=== PATIENT | female | born 1960 | race Caucasian/White ===

== ENCOUNTER → 2016-06-20 | Outpatient (CLI) | payer BC ==
[~2016-06-20] MED LIST: ACET-1256 PO; CALC600T9 PO; CHOL100010 PO; FLNIN/ NAE; HYDR12.56 PO; HYDUNK PO; MISCCAP80 PO; MULT-506 PO; OMEP20CA9 PO
--- NOTE | 2016-06-20 16:47 | MAMMOGRAPHY REPORT ---
BILATERAL DIGITAL SCREENING MAMMOGRAM TOMOSYNTHESIS WITH CAD: 06/20/2016 CLINICAL HISTORY: Routine screening. Patient has no complaints. TECHNIQUE: Breast tomosynthesis in addition to standard 2D mammography was performed. Current study was also evaluated with a Computer Aided Detection (CAD) system. COMPARISON: Comparison is made to exams dated: 06/19/2015 mammogram, 06/14/2013 mammogram, 06/07/2012 mammogram, 06/06/2011 mammogram, 06/15/2010 ultrasound, and 06/03/2009 mammogram - [facility]. BREAST COMPOSITION: There are scattered areas of fibroglandular density in both breasts. FINDINGS: The parenchymal pattern is similar to prior mammograms. No new suspicious mass, java web architect ural distortion or cluster of microcalcifications is seen. IMPRESSION: ACR BI-RADS CATEGORY 2: BENIGN There is no mammographic evidence of malignancy. A 1 year screening mammogram is recommended. The p atient will receive written notification of the results. Approximately 10% of breast cancers are not detected with mammography. A negative mammographic repor t should not delay biopsy if a clinically suggestive mass is present. Kaila Machado M.D. ay/:06/20/2016 16:30:16 [employer] Agent: Patricia WHITAKER(Xu)(M), [facility] letter sent: Normal 1/2 BI-RADS Code: ACR BI-RADS Category 2: Benign
== END | disposition home or self-care (01) ==
LOC: C.MAMM 11:33
PROVIDERS: ATTEND Obstetrics & Gynecology
DX: Z12.31 Encounter for screening mammogram for malignant neoplasm of breast (principal)

== ENCOUNTER → 2016-10-12 | Outpatient (CLI) | payer BC ==
[~2016-10-12] MED LIST changes: +CPR500 PO; +MTR500 PO; +PRT/20 PO
[2016-10-15 03:34] LABS: CHLAMYDIA TRACH RNA*** NOT DETECTED (NOT DETECTED); GC (NEIS GONORRHOEAE)RNA** NOT DETECTED (NOT DETECTED)
== END | disposition home or self-care (01) ==
LOC: C.LABSPEC 17:50
PROVIDERS: ATTEND Obstetrics & Gynecology
DX: N76.0 Acute vaginitis (principal)

== ENCOUNTER 2017-01-02 22:07 | Emergency (ER) | payer BC ==
[~2017-01-02] VITALS: Ht 157.5 cm; Wt 72.5 kg
[~2017-01-02 22:07] MED LIST changes: -ACET-1256 PO; -CPR500 PO; -FLNIN/ NAE; -HYDR12.56 PO; -MTR500 PO; -OMEP20CA9 PO; -PRT/20 PO
[2017-01-02 22:09] VITALS: TEMP 36.7; Ht 157.5 cm; Wt 72.5 kg
[2017-01-02] MEDS ORDERED: FLNIN/ NAE (22:33)
[2017-01-02] MEDS ORDERED: ACET-1256 PO (22:33)
[2017-01-02] MEDS ORDERED: OMEP20CA9 PO (22:33)
[2017-01-02] MEDS ORDERED: HYDR12.56 PO (22:33)
--- NOTE | 2017-01-02 23:00 | DIAGNOSTIC IMAGING REPORT ---
LEFT VENOUS DOPP LOWER EXT UNILAT CLINICAL HISTORY: Left anterior thigh pain. No trauma. Surgery 4 weeks ago. Pain. Edema. TECHNIQUE: Venous Doppler COMPARISON STUDY: None FINDINGS: Normal study IMPRESSION: Normal study The above report was generated using voice recognition software. It may contain grammatical, syntax or spelling errors. Electronically signed by: Tao Sterling M.D. 01/02/2017 10:59 PM Dictated Date/Time: 01/02/2017 10:58 PM
--- NOTE | 2017-01-02 23:13 | EMERGENCY ROOM VISIT NOTE ---
History First contact with patient: 22:12 Chief Complaint: LEG PAIN,LEG INJURY Stated Complaint: PAIN A L THIGH, BLOOD CLOT History of Present Illness The patient is a 56 year old female who presents to the Emergency Room via private vehicle with complaints of "pain in the left thigh, blood clot". The patient states that she had a partial hysterectomy 4 weeks see her, and now has left groin pain that radiates to the left anterior thigh. She rates the pain as a 4-5/10. It is achy in nature. It began this evening around 7:30 or 8 PM. There is been no trauma or injury. She is concerned that may be a blood clot secondary to her surgery 4 weeks ago. She denies any abdominal pain. There has been no urinary symptoms or vaginal discharge. Review of Systems A complete 6-point Review of Systems was discussed with the patient, with pertinent positives and negatives listed in the History of Present Illness. All remaining Review of Systems questions can be considered negative unless otherwise specified. Past Medical/Surgical History Hysterectomy Family History No pertinent. Social History Smoking Status: Never Smoker Marital Status: Patient was locally with family. Current/Historical Medications Scheduled Acetaminophen (Tylenol), 500 MG PO PRN Calcium Carbonate-Vitamin D (Calcium + D), 1 TAB PO HS Fluticasone Propionate (Fluticasone Propionate), 1 SPRAY HUMBERTO DAILY Hydrochlorothiazide (Hctz), 12.5 MG PO DAILY Omeprazole (Prilosec), 20 MG PO DAILY Physical Exam Vital Signs Date Time Temp Pulse Resp B/P (MAP) Pulse Ox O2 Delivery O2 Flow Rate FiO2 01/02/17 23:20 72 20 141/85 95 Room Air 01/02/17 22:09 36.7 80 16 130/75 97 Room Air Physical Exam VITAL SIGNS - Vital signs and nursing notes were reviewed. Afebrile, normotensive, non-tachycardic and is saturating well on room air 97%. GENERAL -56-year-old female appearing her stated age who is in no acute distress. Communicates well with provider and answers questions appropriately. SKIN - Without rashes. Skin overlying the left leg is unremarkable. LUNGS - Chest wall symmetric without accessory muscle use, intercostals retractions, or central cyanosis. Normal vesicular breath sounds CTA B/L. No wheezes, rales, or rhonchi appreciated. CARDIAC - RRR with S1/S2. No murmur, rubs, or gallops appreciated. EXTREMITIES - No clubbing or peripheral cyanosis. No pretibial edema present. No reproducible tenderness of the left anterior thigh. Neurovascularly intact in this region. +5/5 strength noted in UE/LE bilaterally. Medical Decision & Procedures ER Provider Diagnostic Interpretation: LEFT VENOUS DOPP LOWER EXT UNILAT CLINICAL HISTORY: Left anterior thigh pain. No trauma. Surgery 4 weeks ago. Pain. Edema. TECHNIQUE: Venous Doppler COMPARISON STUDY: None FINDINGS: Normal study IMPRESSION: Normal study The above report was generated using voice recognition software. It may contain grammatical, syntax or spelling errors. Electronically signed by: Tao Sterling M.D. 01/02/2017 10:59 PM Dictated Date/Time: 01/02/2017 10:58 PM Medical Decision Patient was seen and evaluated as above. After obtaining a thorough history and physical examination ultrasound was obtained of the left lower extremity This is to rule out DVT. Results as above. Negative study. Patient was offered further workup, and respectfully declined. I do not believe any other workup is necessary, as there has been no trauma, no fevers or chills and there is no abdominal pain. I suspect this is likely either a pulled muscle, or radiation secondary to nerve pain. She is to follow-up with her family doctor, and is to return with worsening. She was educated upon worrisome symptoms which to return, had questions about discharge, and was discharged home in good condition. In evaluation treatment this patient following differential diagnoses were entertained: DVT, PE, muscle strain, neurologic pain, among others. Impression Primary Impression: Leg pain, left Departure Information Dispostion Home / Self-Care Condition GOOD Referrals Sarah Ferraro D.O. (PCP) Patient Instructions My [facility] Additional Instructions You were seen in the emergency Department for left thigh pain. Fortunately, the DVT study does not reveal any blood clot. At this time I do recommend following up with the family doctor. Please return to the emergency department with any new/concerning symptoms. Thank you, and have a good night.
[2017-01-02 23:20] VITALS: BP 141/85; PULSE 72; O2SAT 95
[2017-03-04] MEDS ORDERED: MTR500 PO (17:12)
[2017-03-04] MEDS ORDERED: CPR500 PO (17:12)
== END 2017-01-02 23:27 | disposition home or self-care (01) ==
LOC: C.EDB 22:07 → C.EDC 23:27
DX: M79.652 Pain in left thigh (principal); Z90.710 Acquired absence of both cervix and uterus

== ENCOUNTER 2017-03-02 07:02 | Inpatient (IN) | payer BC ==
[~2017-03-02] VITALS: Ht 157.5 cm; Wt 71.5 kg
[~2017-03-02 07:02] MED LIST changes: +ACET-1256 PO; -CHOL100010 PO; +FLNIN/ NAE; +HYDR12.56 PO; -HYDUNK PO; -MISCCAP80 PO; -MULT-506 PO; +OMEP20CA9 PO
[2017-03-02] MEDS ORDERED: ONDANSETRON INJ 2 MG/ML 2 ML VIAL IV STA (07:44)
[2017-03-02] MEDS ORDERED: SODIUM CHLORIDE 0.9% 1000ML 1,000 ML IV STA (07:44)
[2017-03-02] MEDS ORDERED: OPTIRAY 320 IV PRN (08:00)
[2017-03-02 08:09] LABS: URINE APPEARANCE CLEAR (CLEAR); URINE BILIRUBIN NEG (NEG); URINE COLOR DK YELLOW; URINE EPITHELIAL CELL AUTO >30 /lpf (0-5); URINE NITRITE NEG (NEG); URINE SPECIFIC GRAVITY 1.021 (1.000-1.030); UROBILINOGEN NEG (NEG)
[2017-03-02 08:10] LABS: MANUAL MICROSCOPIC REQUIRED? NO; REVIEW REQ? NO
[2017-03-02 08:39] LABS: BASO % 0.3 %; BASO ABS # 0.03 K/uL (0-0.2); COMPLETE YES; EOS % 0.5 %; HEMATOCRIT 41.3 % (37-47); IG% 0.2 %; LYMPH % 7.4 %; LYMPH ABS # 0.82 K/uL (1.2-3.4); MEAN CELL VOLUME 87.3 fL (80-100); MEAN CORPUSCULAR HEMOGLOBIN 29.6 pg (25-34); MEAN CORPUSCULAR HGB CONC 33.9 g/dl (32-36); MEAN PLATELET VOLUME 10.9 fL (7.4-10.4); MONO % 7.8 %; NEUT % 83.8 %; PLATELET COUNT 238 K/uL (130-400); RED BLOOD COUNT 4.73 M/uL (4.2-5.4); WHITE BLOOD COUNT 11.15 K/uL (4.8-10.8)
[2017-03-02 09:08] LABS: ALKALINE PHOSPHATASE 277 U/L (45-117); ALT/SGPT 164 U/L (12-78); BLOOD UREA NITROGEN 14 mg/dl (7-18); BUN/CREATININE RATIO 18.5 (10-20); CALCIUM 9.5 mg/dl (8.5-10.1); CARBON DIOXIDE 29 mmol/L (21-32); CHLORIDE 105 mmol/L (98-107); CREATININE 0.78 mg/dl (0.60-1.20); GLUCOSE 80 mg/dl (70-99); SODIUM 140 mmol/L (136-145)
[2017-03-02 10:03] LABS: POTASSIUM 3.8 mmol/L (3.5-5.1)
--- NOTE | 2017-03-02 10:56 | DIAGNOSTIC IMAGING REPORT ---
CT OF THE ABDOMEN AND PELVIS WITH CONTRAST CLINICAL HISTORY: Abdominal pain and constipation. COMPARISON STUDY: CT of the abdomen and pelvis March 14, 2014. TECHNIQUE: Following IV administration of 94 mL of Optiray-320, axial images of the abdomen and pelvis were obtained from the lung bases to the proximal femurs. Images were reviewed in the axial, sagittal, and coronal planes. IV contrast was administered without complication. A dose lowering technique was utilized adhering to the principles of ALARA. Oral contrast was administered. CT DOSE: 404.72 mGy.cm FINDINGS: Visualized portions of the lower chest demonstrate mildly enlarged bilateral hilar and subcarinal lymph nodes. These nodes measure up to 1.2 cm in short axis. Bilateral lower lobe opacities favor atelectasis. The liver, spleen, adrenal glands, right kidney and pancreas are unremarkable. Note is made of a 2 cm cyst arising from the lower pole of the left kidney. Pancreas divisum deformity is noted. There is no evidence for a bowel obstruction. The appendix is not visualized. There is left colon diverticulosis. Moderate circumferential wall thickening of the mid to distal sigmoid colon is noted with moderate pericolonic infiltration which extends into the sigmoid mesocolon. A small amount of ascites is noted. A 1.2 cm gas and fluid containing abnormality along the superior aspect of the distal sigmoid colon with peripheral enhancement suggests a small diverticular abscess. The findings represent acute diverticulitis. A hypodensity within the right groin is unchanged since CT of August 15, 2012. There are no suspicious osseous lesions. IMPRESSION: 1. Acute sigmoid diverticulitis with moderate inflammation and a 1.2 cm suspected small peridiverticular abscess. Small amount of ascites. 2. Mild bilateral hilar and subcarinal lymphadenopathy which is partially imaged on this exam. This finding is nonspecific and a follow-up nonemergent chest CT could be obtained. 3. Bibasilar opacities, greater on the right, which favor atelectasis. Electronically signed by: Brandt Solo M.D. 03/02/2017 10:55 AM Dictated Date/Time: 03/02/2017 10:42 AM
[2017-03-02] MEDS ORDERED: METRONIDAZOLE 500MG / 100ML NSS IV STA (11:15)
[2017-03-02] MEDS ORDERED: CIPROFLOXACIN 400MG / 200ML D5W IV STA (11:15)
[2017-03-02 11:20] VITALS: O2SAT 96; Ht 157.5 cm; Wt 71.5 kg
--- NOTE | 2017-03-02 11:25 | History and Physical ---
History & Physical Date & Time of Service: Mar 02, 2017 at 11:25 . Chief Complaint: abdominal pain . Primary Care Physician: Sarah Ferraro D.O. . History of Present Illness Source: patient, clinic records, hospital records 56 YO female followed by Dr. Sarah Ferraro for Family Medicine. History of hypertension and other problems noted below. History of diverticulosis with about 3 episodes of diverticulitis over the years. Diverticulitis treated medically; never required surgical intervention. Feeling bloated over the past several days and bowels seemed to be sluggish. Last night developed abdominal pain. Pain located in the lower abdomen, crampy in nature, moderately severe, and did not radiate. Pain worse when moving her bowels, improved after bowel movement. Tried Tylenol with minimal benefit. No associated nausea or vomiting. No diarrhea, melena, hematochezia. Febrile with temp of 101.5. . Past Medical/Surgical History Chronic and Resolved Medical Problems: (1) Diverticular disease of colon Status: Chronic (2) History of diverticulitis Status: Chronic (3) History of urinary calculi Status: Chronic (4) Hypertension Status: Chronic Surgical Problems: (1) Status post appendectomy Permanent Comment: 2002- appendicitis with perforation; required partial bowel resection Status: Chronic (2) Status post hernia repair Permanent Comment: November [place] [facility] [place]: Chronic (3) Status post hysterectomy Permanent Comment: [facility] [place] Status: Chronic (4) Status post rectocele repair Status: Chronic . Family History FATHER Diabetes mellitus MOTHER Lung cancer Social History Smoking Status: Never Smoker Alcohol Use: occasionally Marital Status: Housing status: lives with family Multi-Drug Resistant Organisms History of MDRO: No Allergies Coded Allergies: Clarithromycin (Verified Allergy, Severe, HIVES, 03/02/17) Moxifloxacin (Verified Allergy, Severe, HIVES, PT STATES SHE CAN TAKE CIPRO, 03/02/17) Penicillins (Verified Allergy, Unknown, HIVES, 03/02/17) Sulfa Drugs (Verified Allergy, Unknown, HIVES, 03/02/17) Morphine (Verified Adverse Reaction, Severe, NAUSEA/VOMITING, 03/02/17) Codeine (Verified Adverse Reaction, Unknown, SEVERE N&V, 03/02/17) Naproxen (Verified Adverse Reaction, Unknown, SEVERE N&V, 03/02/17) Home Medications Scheduled Acetaminophen (Tylenol), 500 MG PO PRN Calcium Carbonate-Vitamin D (Calcium + D), 1 TAB PO HS Hydrochlorothiazide (Hctz), 12.5 MG PO DAILY Scheduled PRN Fluticasone Propionate (Fluticasone Propionate), 1 SPRAY HUMBERTO DAILY PRN for CONGESTION Pantoprazole (Protonix), 20 MG PO DAILY PRN for Indigestion Review of Systems Constitutional: + fever, No weight loss Eyes: No worsening of vision, No diplopia ENT: No hearing loss, No sore throat Respiratory: No cough, No shortness of breath Cardiovascular: No chest pain, No edema Abdomen: + problem reported (as noted above in HPI) Musculoskeletal: + joint pain (neck pain) Genitourinary - Female: No dysuria, No hematuria Neurologic: + problem reported (occasional headache) Endocrine: No excessive thirst, No excessive urination Hematologic / Lymphatic: No abnormal bleeding/bruising Integumentary: No rash, No new/changing skin lesions Allergic / Immunologic: + environmental allergies Physical Exam Vital Signs Date Time Temp Pulse Resp B/P (MAP) Pulse Ox O2 Delivery O2 Flow Rate FiO2 03/02/17 10:52 96 20 154/94 96 Room Air 03/02/17 09:14 97 16 145/80 92 Room Air 03/02/17 08:51 93 03/02/17 07:05 37.9 74 20 132/76 99 Room Air General Appearance: WD/WN, no apparent distress Head: normocephalic, atraumatic Eyes: normal inspection, PERRL, EOMI, sclerae normal ENT: hearing grossly normal, pharynx normal Neck: supple, no adenopathy, thyroid normal, no JVD, trachea midline Respiratory/Chest: lungs clear, no respiratory distress, no accessory muscle use Cardiovascular: regular rate, rhythm, no edema, no gallop, no JVD, normal peripheral pulses, + systolic murmur (I/ systolic murmur at base) Abdomen/GI: + pertinent finding (quiet bowel sounds, slightly distended, soft, lower abdominal tenderness with guarding, no palpable masses or organomegaly) Extremities/Musculoskelatal: normal inspection, no calf tenderness, no pedal edema Neurologic/Psych: genetic technologist II-XII nml as tested (PERRL, EOMI, no facial palsy, no dysarthria), no motor/sensory deficits (grossly intact), alert, normal mood/ affect, normal reflexes, oriented x 3 Skin: normal color, warm/dry, no rash Lymphatic: no adenopathy (cervical) Diagnostics Laboratory Results Results Past 24 Hours Test 03/02/17 07:45 03/02/17 08:15 03/02/17 09:43 Range/Units Urine Color DK YELLOW Urine Appearance CLEAR CLEAR Urine pH 6.0 4.5-7.5 Urine Specific [place] 1.021 1.000-1.030 Urine Protein TRACE NEG Urine Glucose (UA) NEG NEG Urine Ketones NEG NEG Urine Occult Blood 2+ NEG Urine Nitrite NEG NEG Urine Bilirubin NEG NEG Urine Urobilinogen NEG NEG Urine Leukocyte Esterase MODERATE NEG Urine WBC (Auto) 10-30 0-5 /hpf Urine RBC (Auto) 10-30 0-4 /hpf Urine Hyaline Casts (Auto) 1-5 0-5 /lpf Urine Epithelial Cells (Auto) >30 0-5 /lpf Urine Bacteria (Auto) NEG NEG White Blood Count 11.15 4.8-10.8 K/uL Red Blood Count 4.73 4.2-5.4 M/uL Hemoglobin 14.0 12.0-16.0 g/dL Hematocrit 41.3 37-47 % Mean Corpuscular Volume 87.3 80-100 fL Mean Corpuscular Hemoglobin 29.6 25-34 pg Mean Corpuscular Hemoglobin Concent 33.9 32-36 g/dl Platelet Count 238 130-400 K/uL Mean Platelet Volume 10.9 7.4-10.4 fL Neutrophils (%) (Auto) 83.8 % Lymphocytes (%) (Auto) 7.4 % Monocytes (%) (Auto) 7.8 % Eosinophils (%) (Auto) 0.5 % Basophils (%) (Auto) 0.3 % Neutrophils # (Auto) 9.35 1.4-6.5 K/uL Lymphocytes # (Auto) 0.82 1.2-3.4 K/uL Monocytes # (Auto) 0.87 0.11-0.59 K/uL Eosinophils # (Auto) 0.06 0-0.5 K/uL Basophils # (Auto) 0.03 0-0.2 K/uL RDW Standard Deviation 41.5 36.4-46.3 fL RDW Coefficient of Variation 12.9 11.5-14.5 % Immature Granulocyte % (Auto) 0.2 % Immature Granulocyte # (Auto) 0.02 0.00-0.02 K/uL Sodium Level 140 136-145 mmol/L Potassium Level 3.8 3.5-5.1 mmol/L Chloride Level 105 98-107 mmol/L Carbon Dioxide Level 29 21-32 mmol/L Anion Gap 6.0 3-11 mmol/L Blood Urea Nitrogen 14 7-18 mg/dl Creatinine 0.78 0.60-1.20 mg/dl Est Creatinine Clear Calc Drug Dose 75.5 ml/min Estimated GFR () 99.2 Estimated GFR (Non- 85.6 BUN/Creatinine Ratio 18.5 10-20 Random Glucose 80 70-99 mg/dl Calcium Level 9.5 8.5-10.1 mg/dl Total Bilirubin 0.8 0.2-1 mg/dl Direct Bilirubin 0.3 0-0.2 mg/dl Aspartate Amino Transf (AST/SGOT) 145 15-37 U/L Alanine Aminotransferase (ALT/SGPT) 164 12-78 U/L Alkaline Phosphatase 277 45-117 U/L Total Protein 7.7 6.4-8.2 gm/dl Albumin 3.6 3.4-5.0 gm/dl Lipase 110 73-393 U/L Diagnostic Radiology CT OF THE ABDOMEN AND PELVIS WITH CONTRAST FINDINGS: Visualized portions of the lower chest demonstrate mildly enlarged bilateral hilar and subcarinal lymph nodes. These nodes measure up to 1.2 cm in short axis. Bilateral lower lobe opacities favor atelectasis. The liver, spleen, adrenal glands, right kidney and pancreas are unremarkable. Note is made of a 2 cm cyst arising from the lower pole of the left kidney. Pancreas divisum deformity is noted. There is no evidence for a bowel obstruction. The appendix is not visualized. There is left colon diverticulosis. Moderate circumferential wall thickening of the mid to distal sigmoid colon is noted with moderate pericolonic infiltration which extends into the sigmoid mesocolon. A small amount of ascites is noted. A 1.2 cm gas and fluid containing abnormality along the superior aspect of the distal sigmoid colon with peripheral enhancement suggests a small diverticular abscess. The findings represent acute diverticulitis. A hypodensity within the right groin is unchanged since CT of August 15, 2012. There are no suspicious osseous lesions. IMPRESSION: 1. Acute sigmoid diverticulitis with moderate inflammation and a 1.2 cm suspected small peridiverticular abscess. Small amount of ascites. 2. Mild bilateral hilar and subcarinal lymphadenopathy which is partially imaged on this exam. This finding is nonspecific and a follow-up nonemergent chest CT could be obtained. 3. Bibasilar opacities, greater on the right, which favor atelectasis. Electronically signed by: Brandt Solo M.D. 03/02/2017 10:55 AM Dictated Date/Time: 03/02/2017 10:42 AM . Impression Assessment and Plan DIVERTICULITIS Recurrent sigmoid diverticulitis, complicated by small abscess. Does not appear to be septic. Initial management will consist of bowel rest, IV fluids, analgesics, IV antibiotics. Allergy history reviewed and discussed with patient. Has allergies to penicillin, cephalosporins, sulfa, clarithromycin, and moxifloxacin. Moxifloxacin reaction was swelling around eyes noted in 2007. She has had ciprofloxacin at least twice since then without incident. Will treat with IV ciprofloxacin and metronidazole. Consult GI- patient known to Dr. Hawkins. No emergent need for surgical intervention, but elective bowel resection should be considered in light of multiple recurrences. HYPERTENSION Hold HCTZ in light of GI symptoms. Follow and titrate therapy. VTE PROPHYLAXIS Moderate risk for VTE. SQ enoxaparin. Ambulate. RESUSCITATION STATUS Discussed with patient. She has a living will. She would like resuscitation attempted in the event of a cardiopulmonary arrest if there is a reasonable chance of a meaningful recovery, but does not want prolonged extraordinary measures if prognosis is poor. Therefore, code status = "Level 1" (full resuscitation). DISPOSITION Admit to Med-Surg Unit. Expected discharge to home. Family Medicine follow-up with Dr. Sarah Ferraro. . VTE Prophylaxis Given or contraindicated: Enoxaparin (Lovenox)SQ
[2017-03-02 12:40] VITALS: BP 143/96; PULSE 98; TEMP 37.8; O2SAT 94
[2017-03-02] MEDS ORDERED: PRT/20 PO (12:57)
[2017-03-02] MEDS ORDERED: FLUTICASONE PROPIONATE NA SPR 16 GM BTL NAE PRN (13:15)
[2017-03-02] MEDS: ACETAMINOPHEN 500 MG TAB PO PRN ×2 (13:52→18:54)
[2017-03-02] MEDS: D5W AND LACTATED RINGERS 1,000 ML IV SCH ×2 (13:54→20:59)
[2017-03-02 14:27] LABS: PARTIAL THROMBOPLASTIN RATIO 1.2; PROTHROMBIN TIME (PATIENT) 10.2 SECONDS (9.0-12.0)
[2017-03-02 15:00] VITALS: BP 131/86; PULSE 95; TEMP 37.5; O2SAT 93
--- NOTE | 2017-03-02 16:05 | Gastrointestinal Consultation ---
Gastrointestinal Consultation Date of Consultation: Mar 02, 2017 Attending Physician: Abe Malhotra Consulting Physician: Maribel Hopkins Reason for Consultation: Recurrent diverticulitis History of Present Illness Patient is a 56 year old female w PMHx of diverticulitis, urinary calculi, uterine prolapse, HTN who presented to ED w c/o fever and abd pain. She started having abd pain across lower abd area since last Monday. She said the pain is similar to her previous diverticulitis episode thus she started herself on Cipro she had on hand at home x 2 days and been taking Tylenol at least 1g daily. She also was eating bland, soft diet. This morning around 2AM, she woke up feeling feverish, took temp and it was >101. Abd pain across lower abd starting from LLQ area was worse. She had a BM, solid and non bloody afterwards and the pain is improved some but decided to come into ED for evaluation. She was found to be febrile, Temp 37.9. Mild leukocytosis WBC 11, CMP unremarkable except LFT elevated but sample was hemolyzed. She had prior hx of mild transaminases w normal liver on imaging studies unclear cause. CT abd/ pelvis w contrast: 1. Acute sigmoid diverticulitis with moderate inflammation and a 1.2 cm suspected small peridiverticular abscess. Small amount of ascites. 2. Mild bilateral hilar and subcarinal lymphadenopathy which is partially imaged on this exam. This finding is nonspecific and a follow-up nonemergent chest CT could be obtained. 3. Bibasilar opacities, greater on the right, which favor atelectasis. Pt said this is her third diverticulitis episode since 2007. Last episode was 5 yrs ago around time of son's wedding. Last colonoscopy in [address] Hawkins showing diverticular disease in sigmoid and descending colon. 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 BM usually loose but not diarrhea like. Past Medical/Surgical History Medical Problems: (1) Leg pain, left Status: Acute Surgical Problems: (1) Status post rectocele repair Status: Chronic Past Medical History: See above. Past Surgical History: Ear tubes placements, hysterectomy, bowel, IC valve resection, T&A, tonsillectomy, hernia repairs. Family History Diabetes mellitus FATHER Lung cancer MOTHER Social History Smoking Status: Never Smoker Marital Status: Allergies Coded Allergies: Clarithromycin (Verified Allergy, Severe, HIVES, 03/02/17) Moxifloxacin (Verified Allergy, Severe, HIVES, PT STATES SHE CAN TAKE CIPRO, 03/02/17) tolerates ciprofloxacin Penicillins (Verified Allergy, Unknown, HIVES, 03/02/17) Sulfa Drugs (Verified Allergy, Unknown, HIVES, 03/02/17) Morphine (Verified Adverse Reaction, Severe, NAUSEA/VOMITING, 03/02/17) Codeine (Verified Adverse Reaction, Unknown, SEVERE N&V, 03/02/17) Naproxen (Verified Adverse Reaction, Unknown, SEVERE N&V, 03/02/17) Current Medications Home Meds and Scripts Medications Dose Route/Sig Max Daily Dose Days Date Category Protonix (Pantoprazole Sodium) 20 Mg Tab 20 Mg PO DAILY PRN 03/02/17 Reported Tylenol (Acetaminophen) 500 Mg Tab 500 Mg PO PRN 01/02/17 Reported Fluticasone Propionate 120 Sprays/6000 Mcg Inha 1 [place] HUMBERTO DAILY PRN 01/02/17 Reported Hctz (Hydrochlorothiazide) 12.5 Mg Cap 12.5 Mg PO DAILY 01/02/17 Reported Calcium + D (Calcium Carbonate-Vitamin D) 1 Tab Tab 1 Tab PO HS 05/14/14 Reported Review of Systems Constitutional: No fever, No chills Respiratory: No cough Cardiac: No chest pain Abdomen: + pain (improved ), No nausea, No vomiting, No diarrhea, No GI bleeding Physical Exam Date Time Temp Pulse Resp B/P (MAP) Pulse Ox O2 Delivery O2 Flow Rate FiO2 03/02/17 15:00 37.5 95 20 131/86 (101) 93 Room Air 03/02/17 12:40 Room Air 03/02/17 12:40 37.8 98 16 143/96 (112) 94 Room Air 03/02/17 12:18 80 20 149/92 97 Room Air 03/02/17 11:53 37.1 106 18 132/82 92 03/02/17 11:20 96 Room Air 03/02/17 10:52 96 20 154/94 96 Room Air 03/02/17 09:14 97 16 145/80 92 Room Air 03/02/17 08:51 93 03/02/17 07:05 37.9 74 20 132/76 99 Room Air General Appearance: WD/WN, no apparent distress Eyes: normal inspection, PERRL, EOMI Neck: supple, no JVD, trachea midline Respiratory/Chest: normal breath sounds, no respiratory distress, no accessory muscle use Cardiovascular: regular rate, rhythm, no gallop, no murmur Abdomen: normal bowel sounds, soft, + tenderness (LLQ, and across lower abd ) Extremities: normal inspection, no pedal edema, no calf tenderness Neurologic/Psych: alert, normal mood/affect, oriented x 3 Skin: normal color, no jaundice, no rash Laboratory Results Last 24 Hours Test 03/02/17 07:45 03/02/17 08:14 03/02/17 08:15 03/02/17 09:43 Urine Color DK YELLOW Urine Appearance CLEAR Urine pH 6.0 Urine Specific [place] 1.021 Urine Protein TRACE Urine Glucose (UA) NEG Urine Ketones NEG Urine Occult Blood 2+ Urine Nitrite NEG Urine Bilirubin NEG Urine Urobilinogen NEG Urine Leukocyte Esterase MODERATE Urine WBC (Auto) 10-30 /hpf Urine RBC (Auto) 10-30 /hpf Urine Hyaline Casts (Auto) 1-5 /lpf Urine Epithelial Cells (Auto) >30 /lpf Urine Bacteria (Auto) NEG Prothrombin Time 10.2 SECONDS Prothromb Time International Ratio 1.0 Activated Partial Thromboplast Time 30.2 SECONDS Partial Thromboplastin Ratio 1.2 White Blood Count 11.15 K/uL Red Blood Count 4.73 M/uL Hemoglobin 14.0 g/dL Hematocrit 41.3 % Mean Corpuscular Volume 87.3 fL Mean Corpuscular Hemoglobin 29.6 pg Mean Corpuscular Hemoglobin Concent 33.9 g/dl Platelet Count 238 K/uL Mean Platelet Volume 10.9 fL Neutrophils (%) (Auto) 83.8 % Lymphocytes (%) (Auto) 7.4 % Monocytes (%) (Auto) 7.8 % Eosinophils (%) (Auto) 0.5 % Basophils (%) (Auto) 0.3 % Neutrophils # (Auto) 9.35 K/uL Lymphocytes # (Auto) 0.82 K/uL Monocytes # (Auto) 0.87 K/uL Eosinophils # (Auto) 0.06 K/uL Basophils # (Auto) 0.03 K/uL RDW Standard Deviation 41.5 fL RDW Coefficient of Variation 12.9 % Immature Granulocyte % (Auto) 0.2 % Immature Granulocyte # (Auto) 0.02 K/uL Sodium Level 140 mmol/L Potassium Level mmol/L 3.8 mmol/L Chloride Level 105 mmol/L Carbon Dioxide Level 29 mmol/L Anion Gap 6.0 mmol/L Blood Urea Nitrogen 14 mg/dl Creatinine 0.78 mg/dl Est Creatinine Clear Calc Drug Dose 75.5 ml/min Estimated GFR () 99.2 Estimated GFR (Non- 85.6 BUN/Creatinine Ratio 18.5 Random Glucose 80 mg/dl Calcium Level 9.5 mg/dl Total Bilirubin 0.8 mg/dl Direct Bilirubin mg/dl 0.3 mg/dl Aspartate Amino Transf (AST/SGOT) U/L 145 U/L Alanine Aminotransferase (ALT/SGPT) 164 U/L Alkaline Phosphatase 277 U/L Total Protein 7.7 gm/dl Albumin 3.6 gm/dl Lipase 110 U/L Impression Patient is a 56 year old female w acute sigmoid diverticulitis and suspected small abscess in peridiverticular area. 3rd diverticulitis since 2007. Hx of IC valve resection 17 yrs ago for ruptured appendix. Bowels loose at baseline but not diarrhea. Plan - Keep NPO, will re-eval tomorrow to see if can start CL diet. - Cipro/Flagyl antibx IV - Obtain APAP level; monitor LFTs (may be falsely elevated due to hemolysis). - Surgery consult non emergent but should be considered if diverticulitis kept recurring. - Advised to be on a form of fiber supplement (Metamucil, Citrucel) on daily basis - Colonoscopy in 6 week's time. - Non emergent CT chest to eval hilar lymphadenopathy -> defer to primary hospitalist on timing. Late Entry: Patient was seen and examined with Jennifer WALTER on 03/02. Her note reflects our findings and plan. She will need a full course of Cipro and Flagyl and to consider sigmoid resection once she has recovered. Colonoscopy can be arranged in 6+ weeks.
--- NOTE | 2017-03-02 17:03 | EMERGENCY ROOM VISIT NOTE ---
ED Visit Note First contact with patient: 07:11 Chief Complaint: I'm having lower abdominal pain. History of Present Illness: Ms. Santana is a 56 year-old white female complaining of bilateral lower quadrant abdominal pain. Historically patient reports history of GERD and diverticulitis and is status post right sided partial colostomy for ruptured appendix from 17 years ago and November 2016 had a partial hysterectomy and repair of a rectal cystocele. Patient reports been feeling well the last few days. Last night she started developing bilateral lower abdominal pain. Since that time her pain has been constant has waxed and waned in intensity. She reports has a thin band of pain that place just below the umbilicus and starts in the medial aspect of the right upper quadrant and extends into the medial aspect of the left lower quadrant. She does not fear there is quadrant dependence. She describes her comfort as a pressure and burning. Her pain worsens with bowel movements. She has not identified any alleviating factors related to the pain. Currently she rates her discomfort 2/10 but does report its been as high as 7/10. Associated with her pain she does report after the onset of her pain she had a fever last evening and she continues to have a fever today and she is having sensations of abdominal bloating. She does report she talk a stool softener last night without relief of her discomfort. Additionally she reports that she normally has 4 bowel movements a day and she continues to have 4 bowel movements since the onset of her pain. Nothing abnormal about the stool that she's noticed his its normally curved and hers is straight and today but it's of normal caliber. Patient denies sweats, skin eruptions, skin color changes, upper respiratory tract symptoms, shortness of breath, chest pain, nausea, vomiting, diarrhea, constipation, rectal bleeding, black/tarry stools, urinary symptoms, hematuria, vaginal bleeding, vaginal discharge, back/flank pain. Review of Systems: As noted above in history of present illness. All body systems were reviewed and found to be negative as noted above. Past Medical History: As previously noted, hypertension and kidney stones. Current Medications: Medications Dose Route/Sig Max Daily Dose Days Date Category Protonix (Pantoprazole Sodium) 20 Mg Tab 20 Mg PO DAILY PRN 03/02/17 Reported Tylenol (Acetaminophen) 500 Mg Tab 500 Mg PO PRN 01/02/17 Reported Fluticasone Propionate 120 Sprays/6000 Mcg Inha 1 [place] HUMBERTO DAILY PRN 01/02/17 Reported Hctz (Hydrochlorothiazide) 12.5 Mg Cap 12.5 Mg PO DAILY 01/02/17 Reported Calcium + D (Calcium Carbonate-Vitamin D) 1 Tab Tab 1 Tab PO HS 05/14/14 Reported Allergies to Medications: Clarithromycin, codeine, morphine, moxifloxacin, Naprosyn, penicillin and sulfa. Social History: Patient is currently employed; she feels safe in her home environment; she denies tobacco use. Physical Examination: Vital Signs: Date Time Temp Pulse Resp B/P (MAP) Pulse Ox O2 Delivery O2 Flow Rate FiO2 03/02/17 11:20 96 Room Air 03/02/17 10:52 96 20 154/94 96 Room Air 03/02/17 09:14 97 16 145/80 92 Room Air 03/02/17 08:51 93 03/02/17 07:05 37.9 74 20 132/76 99 Room Air GENERAL: 56-year-old female in mild distress due to pain, nontoxic-appearing, afebrile and hemodynamically stable. NEUROLOGICAL: Awake, alert and oriented to person, place and time. Answering questions appropriately and following commands. Normal gait. Good hand eye coordination. SKIN: Warm, dry and pink. No soft tissue eruptions or trauma noted. HEENT: Atraumatic and normocephalic. PERRLA. Sclera white and conjunctiva pink. Oral cavity moist and pink. Pharynx is nonerythematous or edematous. Speech normal. No lymphadenopathy. Trachea midline. No jugular venous distention. BACK: No tenderness over the bony spine. No CVA tenderness. THORAX: Lungs sounds are clear to auscultation and equal bilaterally with symmetrical chest wall. No wheezing, rales or rhonchi. No crepitus, tenderness , subcutaneous air or deformities noted. HEART: Regular rate and rhythm. No gallops, rubs or murmurs are appreciated. ABDOMEN: Flat and soft with mild tenderness in the bilateral lower abdomen. Positive bowel sounds in all quadrants. No guarding, rigidity or organomegaly. EXTREMITIES: Moves all extremities well on command and with purpose. All distal neurovascular statuses are intact and equal bilaterally. ED Course: Patient is assessed as noted above. Laboratory Testing: Test 03/02/17 07:45 03/02/17 08:14 03/02/17 08:15 03/02/17 09:43 Range/Units Urine Color DK YELLOW Urine Appearance CLEAR CLEAR Urine pH 6.0 4.5-7.5 Urine Specific [place] 1.021 1.000-1.030 Urine Protein TRACE NEG Urine Glucose (UA) NEG NEG Urine Ketones NEG NEG Urine Occult Blood 2+ NEG Urine Nitrite NEG NEG Urine Bilirubin NEG NEG Urine Urobilinogen NEG NEG Urine Leukocyte Esterase MODERATE NEG Urine WBC (Auto) 10-30 0-5 /hpf Urine RBC (Auto) 10-30 0-4 /hpf Urine Hyaline Casts (Auto) 1-5 0-5 /lpf Urine Epithelial Cells (Auto) >30 0-5 /lpf Urine Bacteria (Auto) NEG NEG Prothrombin Time 10.2 9.0-12.0 SECONDS Prothromb Time International Ratio 1.0 0.9-1.1 Activated Partial Thromboplast Time 30.2 21.0-31.0 SECONDS Partial Thromboplastin Ratio 1.2 White Blood Count 11.15 4.8-10.8 K/uL Red Blood Count 4.73 4.2-5.4 M/uL Hemoglobin 14.0 12.0-16.0 g/dL Hematocrit 41.3 37-47 % Mean Corpuscular Volume 87.3 80-100 fL Mean Corpuscular Hemoglobin 29.6 25-34 pg Mean Corpuscular Hemoglobin Concent 33.9 32-36 g/dl Platelet Count 238 130-400 K/uL Mean Platelet Volume 10.9 7.4-10.4 fL Neutrophils (%) (Auto) 83.8 % Lymphocytes (%) (Auto) 7.4 % Monocytes (%) (Auto) 7.8 % Eosinophils (%) (Auto) 0.5 % Basophils (%) (Auto) 0.3 % Neutrophils # (Auto) 9.35 1.4-6.5 K/uL Lymphocytes # (Auto) 0.82 1.2-3.4 K/uL Monocytes # (Auto) 0.87 0.11-0.59 K/uL Eosinophils # (Auto) 0.06 0-0.5 K/uL Basophils # (Auto) 0.03 0-0.2 K/uL RDW Standard Deviation 41.5 36.4-46.3 fL RDW Coefficient of Variation 12.9 11.5-14.5 % Immature Granulocyte % (Auto) 0.2 % Immature Granulocyte # (Auto) 0.02 0.00-0.02 K/uL Sodium Level 140 136-145 mmol/L Potassium Level 3.8 3.5-5.1 mmol/L Chloride Level 105 98-107 mmol/L Carbon Dioxide Level 29 21-32 mmol/L Anion Gap 6.0 3-11 mmol/L Blood Urea Nitrogen 14 7-18 mg/dl Creatinine 0.78 0.60-1.20 mg/dl Est Creatinine Clear Calc Drug Dose 75.5 ml/min Estimated GFR () 99.2 Estimated GFR (Non- 85.6 BUN/Creatinine Ratio 18.5 10-20 Random Glucose 80 70-99 mg/dl Calcium Level 9.5 8.5-10.1 mg/dl Total Bilirubin 0.8 0.2-1 mg/dl Direct Bilirubin 0.3 0-0.2 mg/dl Aspartate Amino Transf (AST/SGOT) 145 15-37 U/L Alanine Aminotransferase (ALT/SGPT) 164 12-78 U/L Alkaline Phosphatase 277 45-117 U/L Total Protein 7.7 6.4-8.2 gm/dl Albumin 3.6 3.4-5.0 gm/dl Lipase 110 73-393 U/L Abdominal/Pelvic CT: Was reviewed by myself and read by the radiologist and shows acute sigmoid ever taken light is with moderate inflammation and a 1.2 cm suspected small peridiverticular abscess and a small amount of ascites. Mild bilateral hilar and subcarinal lymphadenopathy. Bibasilar opacities greater on the right which flavors atelectasis. Patient was hydrated with normal saline and she received initially 4 mg of Zofran IV; she refused pain medications. Patient was reassessed multiple times during her stay in the emergency department. After CT results were obtained patient was given 500 mg of Flagyl IV and 500 mg of ciprofloxacin IV. Patient's case was reviewed with Dr. Curran; we agreed on diagnostic approach, treatment, disposition and plan per Patient's case was consulted with case management, Dr. Almas Coyle hospitalist and Dr. Jones general surgery; for medical observation/ admission/surgery. Patient was educated about today's findings. Clinical Impression: Acute sigmoid diverticulitis Decision-Making: Initially my differential diagnosis I considered bowel obstruction, diverticulitis, constipation, perforated viscus and other causes. Disposition and Plan: Patient be brought in the hospital for admission/ observation; please see the hospitalist notes and orders for final disposition and plan.
[2017-03-02] MEDS: ONDANSETRON INJ 2 MG/ML 2 ML VIAL IV PRN (18:48)
[2017-03-02] MEDS ORDERED: FAMOTIDINE IV INJ 20 MG in DEXTROSE 5% 100ML 100 ML IV SCH (21:00)
[2017-03-02] MEDS: METRONIDAZOLE / NSS 500 MG in PREMIXED NSS 100 ML IV SCH (21:00)
[2017-03-02] MEDS: CIPROFLOXACIN / D5W 400 MG in PREMIXED IN D5W 200 ML IV SCH (21:03)
[2017-03-02] MEDS: ENOXAPARIN 40 MG/0.4 ML SYR SQ SCH (21:29)
[2017-03-02 23:19] VITALS: BP 127/85; PULSE 88; TEMP 37.2; O2SAT 92
[2017-03-03] MEDS: ACETAMINOPHEN 500 MG TAB PO PRN ×2 (00:05→07:36)
[2017-03-03] MEDS: D5W AND LACTATED RINGERS 1,000 ML IV SCH ×4 (02:15→22:32)
[2017-03-03] MEDS: ONDANSETRON INJ 2 MG/ML 2 ML VIAL IV PRN (02:17)
[2017-03-03] MEDS: METRONIDAZOLE / NSS 500 MG in PREMIXED NSS 100 ML IV SCH ×3 (03:47→21:05)
[2017-03-03 07:20] VITALS: BP 132/88; PULSE 84; TEMP 37.3; O2SAT 93
[2017-03-03] MEDS ORDERED: METOCLOPRAMIDE HCL INJ 5 MG/ML 2 ML VIAL IV STA (07:45)
[2017-03-03 08:12] VITALS: O2SAT 93
--- NOTE | 2017-03-03 09:01 | Gastroenterology Progress Note ---
Progress Note Date of Service: Mar 03, 2017 Subjective Pt evaluation today including: conversation w/ patient, conversation w/ family ( at the bedside), physical exam, chart review, lab review, review of studies Ms. Santana is a 56-year-old female who noticed mild left lower quadrant abdominal pain 6 days ago then had increasing pain and fever Monday evening and thus presented to the emergency department on morning. On arrival , CT with sigmoid diverticulitis and 1.2 cm abscess, white blood cell count 11.5 on arrival. Temp prior to arrival and most recent fever at 12:40 AM today was 37.8, afebrile since that time. The patient reports feeling better this morning than yesterday. She is sitting up in bed. She is awake alert and caring on conversation. She moves around in the bed sitting/laying down, without any complaint of pain. On exam she has hypoactive bowel sounds present , she is very minimally tender in the left lower quadrant and soft. Passing gas but no bowel movement since prior to arrival. On Cipro and Flagyl IV. Has been nothing by mouth until this point. Review of Systems Constitutional: + fever Cardiac: No chest pain Abdomen: + pain (improving), + nausea (present this morning, improved with Reglan), No diarrhea, No constipation, No GI bleeding Female : No dysuria Neuro: No memory loss Psych: No depression symptoms Endo: No fatigue Skin: No rash Medications Current Inpatient Medications Medications (Trade) Dose Ordered Sig/[place] Route Start Time Stop Time Status Last Admin Dose Admin Ioversol (Optiray 320) 100 ml UD PRN IV 03/02/17 08:00 03/06/17 07:59 Dextrose/Lactated Ringer's 1,000 ml @ 150 mls/hr Q6H40M IV 03/02/17 13:15 04/01/17 13:14 03/03/17 07:35 150 MLS/HR Ciprofloxacin/ Dextrose 400 mg/ Prmx 200 ml @ 100 mls/hr Q12 IV 03/02/17 21:00 03/12/17 20:59 03/02/17 21:03 100 MLS/HR Metronidazole 500 mg/Prmx 100 ml @ 100 mls/hr Q8@0400,1200,2000 IV 03/02/17 20:00 03/12/17 19:59 03/03/17 03:47 100 MLS/HR Ketorolac Tromethamine (Toradol Inj) 30 mg Q6H PRN IV 03/02/17 13:15 03/07/17 13:14 Acetaminophen (Tylenol Tab) 500 mg Q4H PRN PO 03/02/17 13:15 04/01/17 13:14 03/03/17 07:36 500 MG Enoxaparin Sodium (Lovenox Inj) 40 mg HS SQ 03/02/17 21:00 04/01/17 20:59 03/02/17 21:29 40 MG Fluticasone Propionate (Flonase Nasal [place]) 1 sprays DAILY PRN HUMBERTO 03/02/17 13:15 04/01/17 13:14 Ondansetron HCl (Zofran Inj) 4 mg Q6H PRN IV 03/02/17 18:30 04/01/17 18:29 03/03/17 02:17 4 MG Famotidine 20 mg/ Dextrose 102 ml @ 200 mls/hr Q12H IV 03/03/17 00:00 04/02/17 00:00 Objective Vital Signs Date Time Temp Pulse Resp B/P (MAP) Pulse Ox O2 Delivery O2 Flow Rate FiO2 03/03/17 07:20 37.3 84 16 132/88 (103) 93 Room Air 03/02/17 23:19 37.2 88 16 127/85 (99) 92 Room Air 03/02/17 23:15 Room Air 03/02/17 16:15 Room Air 03/02/17 15:00 37.5 95 20 131/86 (101) 93 Room Air 03/02/17 12:40 Room Air 03/02/17 12:40 37.8 98 16 143/96 (112) 94 Room Air 03/02/17 12:18 80 20 149/92 97 Room Air 03/02/17 11:53 37.1 106 18 132/82 92 03/02/17 11:20 96 Room Air 03/02/17 10:52 96 20 154/94 96 Room Air 03/02/17 09:14 97 16 145/80 92 Room Air Physical Exam General Appearance: no apparent distress Neck: no adenopathy, no JVD Respiratory/Chest: lungs clear Cardiovascular: regular rate, rhythm, no JVD, no murmur Abdomen: soft, + tenderness (minimal left lower quadrant) Extremities: no pedal edema Neurologic/Psych: alert, normal mood/affect, oriented x 3 Laboratory Results Last 24 Hours Test 03/02/17 09:43 03/02/17 16:10 03/03/17 06:37 Potassium Level 3.8 mmol/L Direct Bilirubin 0.3 mg/dl 0.3 mg/dl Aspartate Amino Transf (AST/SGOT) 145 U/L 67 U/L Acetaminophen Level 5 ug/ml Total Bilirubin 0.8 mg/dl Alanine Aminotransferase (ALT/SGPT) 120 U/L Alkaline Phosphatase 230 U/L Total Protein 6.7 gm/dl Albumin 3.1 gm/dl Assessment and Plan This is a 56-year-old female with acute sigmoid diverticulitis with abscess. She is clinically much improved today compared to yesterday. Plan 1 clear liquids by mouth. 2. Continue Cipro and Flagyl IV. 3. Consider surgical consult, however patient does not wish to have surgery and if she would have surgery she would prefer surgery in [place] or [place], therefore we will hold off on surgical consult unless patient condition worsens. 4. Plan for outpatient colonoscopy in 4-[address] a message to our GI schedulers to contact this patient to arrange. 5. GI will watch peripherally. I discussed the plan of care with Dr. Hopkins who feels that a surgical consult is necessary. Surgical consult placed. I have seen and examined the patient with Bekah Be whose note reflect sour findings and plan.
[2017-03-03] MEDS: CIPROFLOXACIN / D5W 400 MG in PREMIXED IN D5W 200 ML IV SCH ×2 (10:35→22:30)
--- NOTE | 2017-03-03 11:55 | Surgery Consultation ---
Consultation Date of Consultation: Mar 03, 2017. Attending Physician: Yvan Gutierrez M.D. History of Present Illness Clarissa Santana is a 56 year old woman with HTN and history of multiple abdominal surgeries, including appendectomy requiring ileocecectomy who presents with signs and symptoms concerning for acute diverticulitis. Patient states this is her third episode of diverticulitis in the past 17 years requiring hospitalization (most recent prior to this was 5 years ago); each prior episode was managed non operatively. Patient states over the past few days, she has felt bloated and had low abdominal pain when having BM. Overnight the pain worsened, and she presented to the ED. Indicates the pain she was having was low abdomen, questionably a bit worse on the left side, intermittently crampy; states the pain was improved after having BMs. Denies recent diarrhea, melena or hematochezia. Denies nausea or vomiting; has been tolerating diet as per normal, but with reduced appetite recently. Reports having a fever at home up to max 101.5F. Denies chills, headaches, dizziness, vision changes, chest pain, SOB, dysuria or urinary problems, pain / numbness / swelling / tingling in extremities. Abdomen currently feels much better - denies any pain, nausea or vomiting. Has had loose stools since starting the antibiotics here at the hospital, and has nausea when Morphine is administered. Otherwise feeling better than on presentation. Past Medical/Surgical History Medical History: (1) Diverticular disease of colon (2) History of diverticulitis (3) History of urinary calculi (4) Hypertension Surgical History: (1) Status post appendectomy (2002- appendicitis with perforation; required partial bowel resection - ileocecectomy) (2) Status post hernia repair (November 2016 most recent Left inguinal hernia multiple repairs, right inguinal one time repair) (3) Status post hysterectomy (November 2016 Vaginal approach) (4) Status post rectocele repair Family History Diabetes mellitus FATHER Lung cancer MOTHER Social History Smoking Status: Never Smoker Alcohol Use: occasionally Marital Status: Allergies Coded Allergies: Clarithromycin (Verified Allergy, Severe, HIVES, 03/02/17) Moxifloxacin (Verified Allergy, Severe, HIVES, PT STATES SHE CAN TAKE CIPRO, 03/02/17) tolerates ciprofloxacin Penicillins (Verified Allergy, Unknown, HIVES, 03/02/17) Sulfa Drugs (Verified Allergy, Unknown, HIVES, 03/02/17) Morphine (Verified Adverse Reaction, Severe, NAUSEA/VOMITING, 03/02/17) Codeine (Verified Adverse Reaction, Unknown, SEVERE N&V, 03/02/17) Naproxen (Verified Adverse Reaction, Unknown, SEVERE N&V, 03/02/17) Home Medications Scheduled Acetaminophen (Tylenol), 500 MG PO PRN Calcium Carbonate-Vitamin D (Calcium + D), 1 TAB PO HS Hydrochlorothiazide (Hctz), 12.5 MG PO DAILY Scheduled PRN Fluticasone Propionate (Fluticasone Propionate), 1 SPRAY HUMBERTO DAILY PRN for CONGESTION Pantoprazole (Protonix), 20 MG PO DAILY PRN for Indigestion Current Inpatient Medications Current Inpatient Medications Medications (Trade) Dose Ordered Sig/Mary [place] Route Start Time Stop Time Status Last Admin Dose Admin Ioversol (Optiray 320) 100 ml UD PRN IV 03/02/17 08:00 03/06/17 07:59 Dextrose/Lactated Ringer's 1,000 ml @ 150 mls/hr Q6H40M IV 03/02/17 13:15 04/01/17 13:14 03/03/17 07:35 150 MLS/HR Ciprofloxacin/ Dextrose 400 mg/ Prmx 200 ml @ 100 mls/hr Q12 IV 03/02/17 21:00 03/12/17 20:59 03/03/17 10:35 100 MLS/HR Metronidazole 500 mg/Prmx 100 ml @ 100 mls/hr Q8@0400,1200,2000 IV 03/02/17 20:00 03/12/17 19:59 03/03/17 03:47 100 MLS/HR Ketorolac Tromethamine (Toradol Inj) 30 mg Q6H PRN IV 03/02/17 13:15 03/07/17 13:14 Acetaminophen (Tylenol Tab) 500 mg Q4H PRN PO 03/02/17 13:15 04/01/17 13:14 03/03/17 07:36 500 MG Enoxaparin Sodium (Lovenox Inj) 40 mg HS SQ 03/02/17 21:00 04/01/17 20:59 03/02/17 21:29 40 MG Fluticasone Propionate (Flonase Nasal [place]) 1 sprays DAILY PRN HUMBERTO 03/02/17 13:15 04/01/17 13:14 Ondansetron HCl (Zofran Inj) 4 mg Q6H PRN IV 03/02/17 18:30 04/01/17 18:29 03/03/17 02:17 4 MG Famotidine 20 mg/ Dextrose 102 ml @ 200 mls/hr Q12H IV 03/03/17 00:00 04/02/17 00:00 Review of Systems Constitutional: + fever, No chills, No sweats Eyes: No worsening of vision Respiratory: No cough, No sputum, No wheezing, No shortness of breath Cardiovascular: No chest pain, No edema Abdomen: + pain, No nausea (started at the hospital s/p Morphine admin), No vomiting, No diarrhea (started at the hospital s/p antibiotic admin), No constipation Genitourinary - Female: No dysuria, No urinary frequency, No urinary urgency, No urinary incontinence Neurologic: No numbness/tingling Integumentary: No rash, No itch Physical Exam Date Time Temp Pulse Resp B/P (MAP) Pulse Ox O2 Delivery O2 Flow Rate FiO2 03/03/17 07:20 37.3 84 16 132/88 (103) 93 Room Air 03/02/17 23:19 37.2 88 16 127/85 (99) 92 Room Air 03/02/17 23:15 Room Air 03/02/17 16:15 Room Air 03/02/17 15:00 37.5 95 20 131/86 (101) 93 Room Air 03/02/17 12:40 Room Air 03/02/17 12:40 37.8 98 16 143/96 (112) 94 Room Air 03/02/17 12:18 80 20 149/92 97 Room Air 03/02/17 11:53 37.1 106 18 132/82 92 General Appearance: WD/WN, no apparent distress Head: normocephalic, atraumatic Eyes: normal inspection Neck: supple Respiratory/Chest: lungs clear, normal breath sounds, no respiratory distress Cardiovascular: regular rate, rhythm Abdomen/GI: normal bowel sounds, non tender, soft (no rebound / guarding) Extremities/Musculoskelatal: normal inspection Neurologic/Psych: alert, normal mood/affect, oriented x 3 Skin: normal color, warm/dry, no rash Laboratory Results Last 24 Hours Test 03/02/17 16:10 03/03/17 06:37 Acetaminophen Level 5 ug/ml Total Bilirubin 0.8 mg/dl Direct Bilirubin 0.3 mg/dl Aspartate Amino Transf (AST/SGOT) 67 U/L Alanine Aminotransferase (ALT/SGPT) 120 U/L Alkaline Phosphatase 230 U/L Total Protein 6.7 gm/dl Albumin 3.1 gm/dl 03/02/17 CBC: WBC 11.2, Hgb 14.0, Hct 41.3, Plt 238 03/02/17 BMP: Na 140, K 3.8, Cl 105, CO2 29, BUN 14, Cr 0.8, glucose 86 03/02/17 LFTs: Tbili 0.8, AST 67, ALT 120, Alk Phos 230, Lipase 110 Imagin03/02/17 CT Abd / Pelvis with IV and PO contrast: IMPRESSION: 1. Acute sigmoid diverticulitis with moderate inflammation and a 1.2 cm suspected small peridiverticular abscess. Small amount of ascites. 2. Mild bilateral hilar and subcarinal lymphadenopathy which is partially imaged on this exam. This finding is nonspecific and a follow-up nonemergent chest CT could be obtained. 3. Bibasilar opacities, greater on the right, which favor atelectasis. Assessment & Plan Clarissa Santana is a 56 year old woman with history of ileocecal resection for appendicitis and previous episodes of diverticulitis (managed non operatively) who presents with symptoms and CT scan findings consistent with acute, complicated diverticulitis. She is afebrile, hemodynamically stable and zurdo. Currently with minimal pain, no nausea or vomiting; continues to have BMs. Mild leukocytosis to 11.2 on admission, liver enzymes mildly elevated - otherwise labs unremarkable. CT scan shows acute sigmoid diverticulitis with an adjacent 1.2cm abscess. -No acute surgical intervention indicated at this time -Continue IV Cipro / Flagyl to treat acute diverticulitis -Clear liquids - may advance as tolerated -Continue to trend labs -Discussed possibility of elective sigmoid colon resection in the future, as this is the patient's third episode of acute diverticulitis requiring hospitalization. She is not interested in surgery at this time (feels like she is only now just recovering from the hysterectomy she had in November), but states she would follow up in the future on an elective basis with a surgeon if she changes her mind. -Recommend colonoscopy when acute episode is completely resolved - reports last one was 5 years ago. -Rest of care per primary team -Will continue to follow Estelle Greenwood MD 03/03/17
[2017-03-03] MEDS: KETOROLAC TROMETHAMINE 30 MG/ML VIAL IV PRN ×2 (12:13→21:05)
[2017-03-03] MEDS: FAMOTIDINE IV INJ 20 MG in DEXTROSE 5% 100ML 100 ML IV SCH ×4 (13:49→23:37)
--- NOTE | 2017-03-03 14:22 | Progress Note ---
Internal Med Progress Note Date of Service: Mar 03, 2017. Provider Documentation: SUBJECTIVE: no acute distress. patient denies abdominal discomfort. has been tolerating liquid diet. OBJECTIVE: General Appearance: no apparent distress Head: normocephalic, atraumatic Eyes: normal inspection, EOMI ENT: hearing grossly normal, pharynx normal Neck: supple, no adenopathy, thyroid normal, no JVD, trachea midline Respiratory/Chest: lungs clear, no respiratory distress, no accessory muscle use Cardiovascular: regular rate, rhythm, no edema, no gallop, no JVD, normal peripheral pulses, I/ systolic murmur at base Abdomen/GI: + bowel sounds, soft, nontender Extremities: normal inspection, no calf tenderness, no pedal edema Neurologic: no motor/sensory deficits, alert, normal mood/affect, normal reflexes, oriented x 3 Skin: normal color, warm/dry, no rash ASSESSMENT & PLAN: DIVERTICULITIS Recurrent sigmoid diverticulitis, complicated by small abscess Has allergies to penicillin, cephalosporins, sulfa, clarithromycin, and moxifloxacin (Moxifloxacin reaction was swelling around eyes noted in 2007) treat with IV ciprofloxacin and metronidazole. advance diet as tolerated GI consult: Plan for outpatient colonoscopy in 4-6 weeks Surgery consult: No acute surgical intervention indicated at this time, patient and surgeon discussed possibility of elective sigmoid colon resection in the future as this is the patient's third episode of acute diverticulitis requiring hospitalization. HYPERTENSION: blood pressure controlled Hold HCTZ for now because of GI symptoms. VTE PROPHYLAXIS Moderate risk for VTE. SQ enoxaparin. Ambulate. RESUSCITATION STATUS She has a living will. She would like resuscitation attempted in the event of a cardiopulmonary arrest if there is a reasonable chance of a meaningful recovery, but does not want prolonged extraordinary measures if prognosis is poor. code status = "Level 1" (full resuscitation). DISPOSITION when tolerating regular diet and switched to PO antibiotics, patient likely to be discharged to home with follow up appointment to see her primary care doctor Sarah Ferraro [facility] on 03/10/17 at 10:55 AM And follow up with Gastroenterology clinic as outpatient for outpatient colonoscopy in 4-6 weeks And follow wup with Surgery outpatient if patient is interested in elective sigmoid colon resection for recurrent diverticulitis Vital Signs: Date Time Temp Pulse Resp B/P (MAP) Pulse Ox O2 Delivery O2 Flow Rate FiO2 10/6/17 08:12 93 Room Air 03/03/17 07:20 37.3 84 16 132/88 (103) 93 Room Air 03/02/17 23:19 37.2 88 16 127/85 (99) 92 Room Air 03/02/17 23:15 Room Air 03/02/17 16:15 Room Air 03/02/17 15:00 37.5 95 20 131/86 (101) 93 Room Air Lab Results: Results Past 24 Hours Test 03/02/17 16:10 03/03/17 06:37 Range/Units Acetaminophen Level 5 10-30 ug/ml Total Bilirubin 0.8 0.2-1 mg/dl Direct Bilirubin 0.3 0-0.2 mg/dl Aspartate Amino Transf (AST/SGOT) 67 15-37 U/L Alanine Aminotransferase (ALT/SGPT) 120 12-78 U/L Alkaline Phosphatase 230 45-117 U/L Total Protein 6.7 6.4-8.2 gm/dl Albumin 3.1 3.4-5.0 gm/dl
[2017-03-03 15:17] VITALS: BP 125/82; PULSE 77; TEMP 36.8; O2SAT 97
[2017-03-03] MEDS: METOCLOPRAMIDE HCL INJ 5 MG/ML 2 ML VIAL IV PRN (18:09)
[2017-03-03] MEDS: ENOXAPARIN 40 MG/0.4 ML SYR SQ SCH (22:30)
[2017-03-03 23:20] VITALS: BP 151/90; PULSE 87; TEMP 37; O2SAT 91
[2017-03-04 04:16] VITALS: BP 146/84
[2017-03-04] MEDS: METRONIDAZOLE / NSS 500 MG in PREMIXED NSS 100 ML IV SCH ×2 (04:21→12:23)
[2017-03-04] MEDS: METOCLOPRAMIDE HCL INJ 5 MG/ML 2 ML VIAL IV PRN (04:23)
[2017-03-04] MEDS: KETOROLAC TROMETHAMINE 30 MG/ML VIAL IV PRN (04:28)
[2017-03-04] MEDS: D5W AND LACTATED RINGERS 1,000 ML IV SCH (04:32)
[2017-03-04 07:25] VITALS: BP 145/88; PULSE 78; TEMP 37.1; O2SAT 94
--- NOTE | 2017-03-04 08:41 | Surgery Progress Note ---
Surgery Progress Note Date of Service Mar 04, 2017. Subjective Patient examined at bedside this morning. Afebrile, vitals stable overnight on room air, no acute events overnight. Denies abdominal pain this morning, feeling overall well - but states she did not sleep well last night due to hospital environment. Tolerating clear liquids without N/V - hungry, would like to try regular food this morning. Ambulating and voiding without difficulty. Continues to have loose stools - most recent this morning. Objective Vital Signs: Date Time Temp Pulse Resp B/P (MAP) Pulse Ox O2 Delivery O2 Flow Rate FiO2 03/04/17 07:25 37.1 78 16 145/88 (107) 94 Room Air 03/04/17 04:16 146/84 (104) 03/03/17 23:30 Room Air 03/03/17 23:20 37.0 87 16 151/90 (110) 91 Room Air 03/03/17 15:40 Room Air 03/03/17 15:17 36.8 77 17 125/82 (96) 97 Room Air General Appearance: WD/WN, no apparent distress Head: normocephalic Neck: supple Respiratory/Chest: lungs clear, normal breath sounds, no respiratory distress Cardiovascular: regular rate, rhythm Abdomen: normal bowel sounds, non tender, non distended, soft (no rebound / guarding) Assessment & Plan Clarissa Snatana is a 56 year old woman with history of ileocecal resection for appendicitis and previous episodes of diverticulitis (managed non operatively) who presents with symptoms and CT scan findings consistent with acute, complicated diverticulitis with a small 1.2cm abscess. Pain has now resolved. Tolerating clear liquids, feeling hungry and wants regular diet. Would like to go home. -No acute surgical intervention indicated -Transition IV Cipro / Flagyl to PO medications for discharge -Advanced to regular diet this morning -Will follow up with surgery as outpatient if decides she wants elective sigmoid resection in the future -Outpatient colonoscopy in 4-6 weeks by GI -If tolerates diet, ok to discharge to home later today from a surgical perspective. Continue PO Cipro / flagyl to complete 14 day course on discharge. Estelle Greenwood MD 03/04/17
[2017-03-04] MEDS: CIPROFLOXACIN / D5W 400 MG in PREMIXED IN D5W 200 ML IV SCH (08:51)
[2017-03-04 09:50] LABS: BASO % 0.3 %; BASO ABS # 0.02 K/uL (0-0.2); EOS % 0.8 %; HEMATOCRIT 37.3 % (37-47); IG% 0.4 %; LYMPH % 10.7 %; LYMPH ABS # 0.85 K/uL (1.2-3.4); MEAN CELL VOLUME 87.6 fL (80-100); MEAN CORPUSCULAR HEMOGLOBIN 29.3 pg (25-34); MEAN PLATELET VOLUME 11.1 fL (7.4-10.4); MONO % 5.9 %; NEUT % 81.9 %; PLATELET COUNT 192 K/uL (130-400); RED BLOOD COUNT 4.26 M/uL (4.2-5.4); WHITE BLOOD COUNT 7.92 K/uL (4.8-10.8)
[2017-03-04 09:54] LABS: COMPLETE YES; MEAN CORPUSCULAR HGB CONC 33.5 g/dl (32-36)
[2017-03-04 10:18] LABS: ALB/GLOB RATIO 0.9 (0.9-2); BUN/CREATININE RATIO 5.8 (10-20); CALCIUM 9.3 mg/dl (8.5-10.1); CREATININE 0.69 mg/dl (0.60-1.20); POTASSIUM 2.9 mmol/L (3.5-5.1)
[2017-03-04] MEDS ORDERED: POTASSIUM CHLORIDE 20 MEQ TABCR PO ONE (11:00)
[2017-03-04] MEDS ORDERED: POTASSIUM CHLR 10 MEQ / WTR 10 MEQ in PREMIXED WATER 100 ML IV ONE (11:30)
[2017-03-04 11:36] LABS: MAGNESIUM 1.9 mg/dl (1.8-2.4)
[2017-03-04] MEDS: FAMOTIDINE IV INJ 20 MG in DEXTROSE 5% 100ML 100 ML IV SCH (12:23)
--- NOTE | 2017-03-04 12:41 | Progress Note ---
Internal Med Progress Note Date of Service: Mar 04, 2017. Provider Documentation: SUBJECTIVE: no acute distress. patient reports mild diarrhea. Denies abdominal pain. Noted to have hypokalemia of 2.9. ordered potassium 10 meq IV and 80 meq PO. Replete and recheck labs in the afternoon. Continue potassium repletion if needed OBJECTIVE: General Appearance: no apparent distress Head: normocephalic, atraumatic Eyes: normal inspection, EOMI ENT: hearing grossly normal, pharynx normal Neck: supple, no adenopathy, thyroid normal, no JVD, trachea midline Respiratory/Chest: lungs clear, no respiratory distress, no accessory muscle use Cardiovascular: regular rate, rhythm, no edema, no gallop, no JVD, normal peripheral pulses, I/ systolic murmur at base Abdomen/GI: + bowel sounds, soft, nontender Extremities: normal inspection, no calf tenderness, no pedal edema Neurologic: no motor/sensory deficits, alert, normal mood/affect, normal reflexes, oriented x 3 Skin: normal color, warm/dry, no rash ASSESSMENT & PLAN: DIVERTICULITIS Recurrent sigmoid diverticulitis, complicated by small abscess Has allergies to penicillin, cephalosporins, sulfa, clarithromycin, and moxifloxacin (Moxifloxacin reaction was swelling around eyes noted in 2007) Have been treated with IV ciprofloxacin 400 mg q12 hours and metronidazole IV q8 hours. Switched to ciprofloxacin 500 mg BID and Metronidazole 500 mg BID GI consult: Plan for outpatient colonoscopy in 4-6 weeks Surgery consult: No acute surgical intervention indicated at this time, patient and surgeon discussed possibility of elective sigmoid colon resection in the future as this is the patient's third episode of acute diverticulitis requiring hospitalization. Continue PO Cipro / flagyl to complete 14 day course on discharge. Hypokalemia patient reports mild diarrhea. Denies abdominal pain. Noted to have hypokalemia of 2.9. ordered potassium 10 meq IV and 80 meq PO. Replete and recheck labs in the afternoon. Continue potassium repletion if needed HTN: blood pressure controlled restart HCTZ on discharge VTE PROPHYLAXIS Moderate risk for VTE. SQ enoxaparin. Ambulate. RESUSCITATION STATUS She has a living will. She would like resuscitation attempted in the event of a cardiopulmonary arrest if there is a reasonable chance of a meaningful recovery, but does not want prolonged extraordinary measures if prognosis is poor. code status = "Level 1" (full resuscitation). DISPOSITION Continue PO Cipro / flagyl to complete 14 day course on discharge patient likely to be discharged to home with follow up appointment to see her primary care doctor Sarah Ferraro [facility] on at 10:55 AM once serum potassium repleted And follow up with Gastroenterology clinic as outpatient for outpatient colonoscopy in 4-6 weeks And follow up with Surgery outpatient if patient is interested in elective sigmoid colon resection for recurrent diverticulitis Vital Signs: Date Time Temp Pulse Resp B/P (MAP) Pulse Ox O2 Delivery O2 Flow Rate FiO2 03/04/17 10:09 Room Air 03/04/17 07:25 37.1 78 16 145/88 (107) 94 Room Air 03/04/17 04:16 146/84 (104) 03/03/17 23:30 Room Air 03/03/17 23:20 37.0 87 16 151/90 (110) 91 Room Air 03/03/17 15:40 Room Air 03/03/17 15:17 36.8 77 17 125/82 (96) 97 Room Air Lab Results: Results Past 24 Hours Test 03/04/17 09:35 Range/Units White Blood Count 7.92 4.8-10.8 K/uL Red Blood Count 4.26 4.2-5.4 M/uL Hemoglobin 12.5 12.0-16.0 g/dL Hematocrit 37.3 37-47 % Mean Corpuscular Volume 87.6 80-100 fL Mean Corpuscular Hemoglobin 29.3 25-34 pg Mean Corpuscular Hemoglobin Concent 33.5 32-36 g/dl Platelet Count 192 130-400 K/uL Mean Platelet Volume 11.1 7.4-10.4 fL Neutrophils (%) (Auto) 81.9 % Lymphocytes (%) (Auto) 10.7 % Monocytes (%) (Auto) 5.9 % Eosinophils (%) (Auto) 0.8 % Basophils (%) (Auto) 0.3 % Neutrophils # (Auto) 6.49 1.4-6.5 K/uL Lymphocytes # (Auto) 0.85 1.2-3.4 K/uL Monocytes # (Auto) 0.47 0.11-0.59 K/uL Eosinophils # (Auto) 0.06 0-0.5 K/uL Basophils # (Auto) 0.02 0-0.2 K/uL RDW Standard Deviation 40.8 36.4-46.3 fL RDW Coefficient of Variation 12.7 11.5-14.5 % Immature Granulocyte % (Auto) 0.4 % Immature Granulocyte # (Auto) 0.03 0.00-0.02 K/uL Sodium Level 143 136-145 mmol/L Potassium Level 2.9 3.5-5.1 mmol/L Chloride Level 107 98-107 mmol/L Carbon Dioxide Level 30 21-32 mmol/L Anion Gap 6.0 3-11 mmol/L Blood Urea Nitrogen 4 7-18 mg/dl Creatinine 0.69 0.60-1.20 mg/dl Est Creatinine Clear Calc Drug Dose 85.3 ml/min Estimated GFR () 113.6 Estimated GFR (Non- 98.0 BUN/Creatinine Ratio 5.8 10-20 Random Glucose 150 70-99 mg/dl Calcium Level 9.3 8.5-10.1 mg/dl Magnesium Level 1.9 1.8-2.4 mg/dl Total Bilirubin 0.4 0.2-1 mg/dl Aspartate Amino Transf (AST/SGOT) 46 15-37 U/L Alanine Aminotransferase (ALT/SGPT) 95 12-78 U/L Alkaline Phosphatase 210 45-117 U/L Total Protein 7.0 6.4-8.2 gm/dl Albumin 3.3 3.4-5.0 gm/dl Globulin 3.7 2.5-4.0 gm/dl Albumin/Globulin Ratio 0.9 0.9-2
[2017-03-04] MEDS ORDERED: METRONIDAZOLE 500 MG TAB PO SCH (14:00)
[2017-03-04 15:27] VITALS: BP 142/89; PULSE 84; TEMP 37; O2SAT 97
[2017-03-04 16:48] LABS: BUN/CREATININE RATIO 14.7 (10-20); CALCIUM 9.1 mg/dl (8.5-10.1); CREATININE 0.7 mg/dl (0.60-1.20)
[2017-03-04 16:52] LABS: ALB/GLOB RATIO 0.9 (0.9-2)
[2017-03-04 16:53] LABS: POTASSIUM 4.3 mmol/L (3.5-5.1)
[2017-03-04] MEDS ORDERED: MTR500 PO (17:12)
[2017-03-04] MEDS ORDERED: CPR500 PO (17:12)
--- NOTE | 2017-03-04 17:20 | Discharge Instructions ---
Discharge Instructions Date of Service Mar 04, 2017. Admission Reason for Admission: Diverticulitis Discharge Discharge Diagnosis / Problem: diverticulitis with abscess, hypokalemia due to diarrhea Discharge Goals Goal(s): Decrease discomfort, Improve disease control Activity Recommendations Activity Limitations: resume your previous activity Driving or Machine Use: no limitations . Instructions / Follow-Up Instructions / Follow-Up DISPOSITION Continue PO Cipro / flagyl to complete 14 day course on discharge patient likely to be discharged to home with follow up appointment to see her primary care doctor Sarah Ferraro [facility] on at 10:55 AM once serum potassium repleted And follow up with Gastroenterology clinic as outpatient for outpatient colonoscopy in 4-6 weeks And follow up with Surgery outpatient if patient is interested in elective sigmoid colon resection for recurrent diverticulitis Current Hospital Diet Patient's current hospital diet: Regular Diet Discharge Diet Recommended Diet: Regular Diet Pending Studies Studies pending at discharge: no Laboratory Results 03/04/17 09:35 Red Blood Count 4.26, Mean Corpuscular Volume 87.6, Mean Corpuscular Hemoglobin 29.3, Mean Corpuscular Hemoglobin Concent 33.5, Mean Platelet Volume 11.1, Neutrophils (%) (Auto) 81.9, Lymphocytes (%) (Auto) 10.7, Monocytes (%) (Auto) 5.9, Eosinophils (%) (Auto) 0.8, Basophils (%) (Auto) 0.3, Neutrophils # (Auto) 6.49, Lymphocytes # (Auto) 0.85, Monocytes # (Auto) 0.47, Eosinophils # (Auto) 0.06, Basophils # (Auto) 0.02 03/04/17 16:07 Test 03/02/17 07:45 03/02/17 08:14 03/02/17 08:15 03/02/17 16:10 Urine Color DK YELLOW Urine Appearance CLEAR (CLEAR) Urine pH 6.0 (4.5-7.5) Urine Specific [place] 1.021 (1.000-1.030) Urine Protein TRACE (NEG) Urine Glucose (UA) NEG (NEG) Urine Ketones NEG (NEG) Urine Occult Blood 2+ (NEG) Urine Nitrite NEG (NEG) Urine Bilirubin NEG (NEG) Urine Urobilinogen NEG (NEG) Urine Leukocyte Esterase MODERATE (NEG) Urine WBC (Auto) 10-30 /hpf (0-5) Urine RBC (Auto) 10-30 /hpf (0-4) Urine Hyaline Casts (Auto) 1-5 /lpf (0-5) Urine Epithelial Cells (Auto) >30 /lpf (0-5) Urine Bacteria (Auto) NEG (NEG) Prothrombin Time 10.2 SECONDS (9.0-12.0) Prothromb Time International Ratio 1.0 (0.9-1.1) Activated Partial Thromboplast Time 30.2 SECONDS (21.0-31.0) Partial Thromboplastin Ratio 1.2 Lipase 110 U/L (73-393) Acetaminophen Level 5 ug/ml (10-30) Test 03/03/17 06:37 03/04/17 09:35 03/04/17 16:07 Direct Bilirubin 0.3 mg/dl (0-0.2) White Blood Count 7.92 K/uL (4.8-10.8) Red Blood Count 4.26 M/uL (4.2-5.4) Hemoglobin 12.5 g/dL (12.0-16.0) Hematocrit 37.3 % (37-47) Mean Corpuscular Volume 87.6 fL (80-100) Mean Corpuscular Hemoglobin 29.3 pg (25-34) Mean Corpuscular Hemoglobin Concent 33.5 g/dl (32-36) Platelet Count 192 K/uL (130-400) Mean Platelet Volume 11.1 fL (7.4-10.4) Neutrophils (%) (Auto) 81.9 % Lymphocytes (%) (Auto) 10.7 % Monocytes (%) (Auto) 5.9 % Eosinophils (%) (Auto) 0.8 % Basophils (%) (Auto) 0.3 % Neutrophils # (Auto) 6.49 K/uL (1.4-6.5) Lymphocytes # (Auto) 0.85 K/uL (1.2-3.4) Monocytes # (Auto) 0.47 K/uL (0.11-0.59) Eosinophils # (Auto) 0.06 K/uL (0-0.5) Basophils # (Auto) 0.02 K/uL (0-0.2) RDW Standard Deviation 40.8 fL (36.4-46.3) RDW Coefficient of Variation 12.7 % (11.5-14.5) Immature Granulocyte % (Auto) 0.4 % Immature Granulocyte # (Auto) 0.03 K/uL (0.00-0.02) Magnesium Level 1.9 mg/dl (1.8-2.4) Anion Gap 6.0 mmol/L (3-11) Est Creatinine Clear Calc Drug Dose 84.1 ml/min Estimated GFR () 113.0 Estimated GFR (Non- 97.5 BUN/Creatinine Ratio 14.7 (10-20) Calcium Level 9.1 mg/dl (8.5-10.1) Total Bilirubin 0.3 mg/dl (0.2-1) Aspartate Amino Transf (AST/SGOT) 96 U/L (15-37) Alanine Aminotransferase (ALT/SGPT) 106 U/L (12-78) Alkaline Phosphatase 244 U/L (45-117) Total Protein 6.6 gm/dl (6.4-8.2) Albumin 3.1 gm/dl (3.4-5.0) Globulin 3.5 gm/dl (2.5-4.0) Albumin/Globulin Ratio 0.9 (0.9-2) Medical Emergencies . Who to Call and When: Medical Emergencies: If at any time you feel your situation is an emergency, please call 911 immediately. . Non-Emergent Contact Non-Emergency issues call your: Primary Care Provider . . "Provider Documentation" section prepared by Yvan Gutierrez. . VTE Core Measure Inpt VTE Proph given/why not?: Enoxaparin (Lovenox)SQ
--- NOTE | 2017-03-04 17:22 | Discharge Summary ---
Discharge Summary Date of Service Mar 04, 2017. Discharge Summary Admission Date: Mar 02, 2017 at 11:26 Discharge Date: Mar 04, 2017 Discharge Disposition: Home Principal Diagnosis: diverticulitis with abscess, hypokalemia due to diarrhea Consultations: gastroenterology, general surgery Medication Reconciliation New Medications: Ciprofloxacin (Ciprofloxacin HCl) 500 Mg Tab 500 MG PO BID for 14 Days, #28 TAB Metronidazole (Metronidazole) 500 Mg Tab 500 MG PO TID for 14 Days, #42 TAB Continued Medications: Acetaminophen (Tylenol) 500 Mg Tab 500 MG PO PRN, TAB Calcium Carbonate-Vitamin D (Calcium + D) 1 Tab Tab 1 TAB PO HS Fluticasone Propionate (Fluticasone Propionate) 120 Sprays/6000 Mcg Inha 1 SPRAY HUMBERTO DAILY PRN for CONGESTION, #16 Hydrochlorothiazide (Hctz) 12.5 Mg Cap 12.5 MG PO DAILY, #30 Pantoprazole (Protonix) 20 Mg Tab 20 MG PO DAILY PRN for Indigestion, TAB Admission Information HPI (per Admitting provider): 56 YO female followed by Dr. Sarah Ferraro for Family Medicine. History of hypertension and other problems noted below. History of diverticulosis with about 3 episodes of diverticulitis over the years. Diverticulitis treated medically; never required surgical intervention. Feeling bloated over the past several days and bowels seemed to be sluggish. Last night developed abdominal pain. Pain located in the lower abdomen, crampy in nature, moderately severe, and did not radiate. Pain worse when moving her bowels, improved after bowel movement. Tried Tylenol with minimal benefit. No associated nausea or vomiting. No diarrhea, melena, hematochezia. Febrile with temp of 101.5. . Physical Exam (per Admitting): General Appearance: WD/WN, no apparent distress Head: normocephalic, atraumatic Eyes: normal inspection, PERRL, EOMI, sclerae normal ENT: hearing grossly normal, pharynx normal Neck: supple, no adenopathy, thyroid normal, no JVD, trachea midline Respiratory/Chest: lungs clear, no respiratory distress, no accessory muscle use Cardiovascular: regular rate, rhythm, no edema, no gallop, no JVD, normal peripheral pulses, + systolic murmur (I/ systolic murmur at base) Abdomen/GI: + pertinent finding (quiet bowel sounds, slightly distended, soft, lower abdominal tenderness with guarding, no palpable masses or organomegaly) Extremities/Musculoskelatal: normal inspection, no calf tenderness, no pedal edema 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 Switched to ciprofloxacin 500 mg BID and Metronidazole 500 mg BID GI consult: Plan for outpatient colonoscopy in 4-6 weeks Surgery consult: No acute surgical intervention indicated at this time, patient and surgeon discussed possibility of elective sigmoid colon resection in the future as this is the patient's third episode of acute diverticulitis requiring hospitalization. Continue PO Cipro / flagyl to complete 14 day course on discharge. Hypokalemia patient reports mild diarrhea. Denies abdominal pain. Noted to have hypokalemia of 2.9. ordered potassium 10 meq IV and 80 meq PO. Repleted to serum potassium level of 4.3 HTN: blood pressure controlled restart HCTZ on discharge VTE PROPHYLAXIS Moderate risk for VTE. SQ enoxaparin. Ambulate. RESUSCITATION STATUS She has a living will. She would like resuscitation attempted in the event of a cardiopulmonary arrest if there is a reasonable chance of a meaningful recovery, but does not want prolonged extraordinary measures if prognosis is poor. code status = "Level 1" (full resuscitation). DISPOSITION Continue PO Cipro / flagyl to complete 14 day course on discharge patient likely to be discharged to home with follow up appointment to see her primary care doctor Sarah Ferraro DO [facility] on at 10:55 AM once serum potassium repleted And follow up with Gastroenterology clinic as outpatient for outpatient colonoscopy in 4-6 weeks And follow up with Surgery outpatient if patient is interested in elective sigmoid colon resection for recurrent diverticulitis Total time spent on discharge = 40 This includes examination of the patient, discharge planning, medication reconciliation, and communication with other providers. Discharge Instructions DISPOSITION Continue PO Cipro / flagyl to complete 14 day course on discharge patient likely to be discharged to home with follow up appointment to see her primary care doctor Sarah Ferraro [facility] on at 10:55 AM once serum potassium repleted And follow up with Gastroenterology clinic as outpatient for outpatient colonoscopy in 4-6 weeks And follow up with Surgery outpatient if patient is interested in elective sigmoid colon resection for recurrent diverticulitis
[2017-03-04 18:03] VITALS: BP 142/89; PULSE 84; TEMP 37; O2SAT 97
[2017-03-04] MEDS ORDERED: CIPROFLOXACIN 500 MG TAB PO SCH (21:00)
== END 2017-03-04 18:15 | disposition home or self-care (01) | DRG 392 ==
LOC: C.EDB 07:03 → C.MSN 11:26 → ENRESERV 11:36
PROVIDERS: ADMIT Hospitalist; ATTEND Hospitalist
DX: K57.20 Diverticulitis of large intestine with perforation and abscess without bleeding (principal); R18.8 Other ascites; K21.9 Gastro-esophageal reflux disease without esophagitis; I10 Essential (primary) hypertension; Z83.3 Family history of diabetes mellitus; E87.6 Hypokalemia; Z88.0 Allergy status to penicillin

== ENCOUNTER → 2017-04-26 | Outpatient (CLI) | payer BC ==
[~2017-04-26] MED LIST changes: +CPR500 PO; +MTR500 PO; -OMEP20CA9 PO; +PRT/20 PO
== END | disposition home or self-care (01) ==
LOC: C.PATHSPEC 17:08
PROVIDERS: ATTEND Urology
DX: R31.29 Other microscopic hematuria (principal)

== ENCOUNTER 2017-05-30 05:38 | Day surgery (SDC) | payer BC, OTHER ==
[2017-05-26 09:03] VITALS: BMI 28.0
--- NOTE | 2017-05-26 09:34 | PAT Medication Instructions ---
Service Date May 26, 2017. Current Home Medication List Acetaminophen (Tylenol), 500 MG PO PRN Cholecalciferol (Vitamin D3), 1 CAP PO Q2D Fluticasone Propionate (Fluticasone Propionate), 1 SPRAY HUMBERTO QAM Hydrochlorothiazide (Hctz), 12.5 MG PO QAM Hydrocortisone (Topical) (Hydrocortisone), 1 APPLN TOP PRN Multivit/Min/Iron/Fol Ac/Pren ( Vitamin), 1 TAB PO NOON Probiotic Product (Probiotic), 1 TAB PO QAM Wheat Dextrin (Benefiber), 5 ML PO QAM [Potassium Citrate], 10 MEQ PO QAM [turmeric], 1 TAB PO NOON Medication Instructions For Your Scheduled Surgery - Held for surgery: [turmeric], 1 TAB PO NOON - Hold the following medications 24 hours prior to surgery: Hydrocortisone (Topical) (Hydrocortisone), 1 APPLN TOP PRN - Hold the following medications the morning of surgery: Probiotic Product (Probiotic), 1 TAB PO QAM Wheat Dextrin (Benefiber), 5 ML PO QAM [Potassium Citrate], 10 MEQ PO QAM Cholecalciferol (Vitamin D3), 1 CAP PO Q2D Multivit/Min/Iron/Fol Ac/Pren ( Vitamin), 1 TAB PO NOON Hydrochlorothiazide (Hctz), 12.5 MG PO QAM - Take the following medications the morning of surgery with a sip of water OTHERWISE NOTHING TO EAT OR DRINK AFTER MIDNIGHT: Acetaminophen (Tylenol), 500 MG PO PRN (may take if needed up to 4 hours prior to surgery) Fluticasone Propionate (Fluticasone Propionate), 1 SPRAY HUMBERTO QAM If you have any questions please call us at [phone] or [phone] or [phone]
[~2017-05-30] VITALS: Ht 157.5 cm; Wt 69.4 kg
[~2017-05-30 05:38] MED LIST changes: -CALC600T9 PO; +CHOL2000 PO; -CPR500 PO; +HYDR2.5O TOP; +MISCCAP80 PO; -MTR500 PO; +POTASSIUM CITRATE PO; +PRENTAB26 PO; -PRT/20 PO; +WHEAPOW13 PO; +turmeric PO
[2017-05-30 06:00] VITALS: BP 143/94; PULSE 89; TEMP 37.1; O2SAT 97; Ht 157.5 cm; Wt 69.4 kg
[2017-05-30] MEDS ORDERED: LACTATED RINGER'S 1000ML 1,000 ML IV SCH (06:00)
--- NOTE | 2017-05-30 06:25 | History and Physical ---
History & Physical Date of Service May 30, 2017. History & Physical 56-year-old white female referred to Dr. Alexander Encinas for workup of mediastinal hilar fullness. Patient has a long history diverticulosis with associated abscess and hypokalemia due to diarrhea and multiple associated antibiotic allergies. In late 2016 the patient was being worked up for repeat episode diverticulitis and CT of the abdomen performed 02/26/2017 noted: elevation of the right hemidiaphragm with dependent and compressive atelectasis at the right lung base. Minimal atelectasis at the left base was noted. Multiple enlarged mediastinal lymph nodes are present the largest measuring 1.0 x 1.8 centimeters in the AP window bulky paratracheal lymph node enlargement specially on the right side measuring 1.8 x 1.8 centimeters extensive the upper mediastinum and a large left paratracheal lymph node measuring 1.6 x 1.6 centimeters was noted and subcarinal lymph node measuring 2.2 x 1.9 centimeters. Bilateral hilar lymph nodes were noted but due to lack of IV contrast this was difficult to ascertain. At this time is believe the patient's bilateral hilar mediastinal adenopathy with repeat nephrocalcinosis/calcium oxalate stones or possibly related with a differential diagnosis consistent with sarcoid. PmHx: 1. Abdominal pain, LLQ (left lower quadrant) 2. Allergic rhinitis 3. Conductive hearing loss 4. Cyst of kidney, acquired 5. Cystocele, midline 6. Diverticulosis of colon 7. Dysfunction of both eustachian tubes 8. Elevated transaminase level 9. Hypertension 10. Inguinal hernia 11. Irritable bowel syndrome 12. Leiomyoma of uterus 13. Osteopenia 14. Penicillin allergy 15. Perforation of right tympanic membrane 16. Premenstrual syndrome 17. Prolapse of female pelvic organs 18. Raynauds phenomenon/ Cold intolerance 19. Recurrent left inguinal hernia 20. Recurrent right inguinal hernia 21. Sacroiliitis 22. Tympanosclerosis of both ears 23. Urinary incontinence 24. Uterine enlargement 25. Vitamin D deficiency 26. ephrocalcinosis Surgical History 1. Appendectomy 2. Dilation And Curettage 3. Ear Pressure Equalization Tube, Insertion 4. Hernia Repair 5. Hysteroscopy 6. Laparoscopy (Diagnostic) 7. Laparoscopy Repair Of Recurrent Inguinal Hernia 8. Oral Surgery Tooth Extraction 9. Partial Colectomy 10. Tonsillectomy With Adenoidectomy 11. Tubal Ligation 12. Tympanoplasty Family History 1. Family history of Lung Cancer (mother) 2. Family history of Metastatic Cancer 3. Family history of Hypertension 4. Family history of Stroke Syndrome 5. Family history of Coronary Artery Disease 6. Family history of Diabetes Mellitus Social History Always uses seat belt Being A Social Drinker Exercising Regularly Marital History - Currently Never smoker Occupation: Denied: History of Smoking Cigarettes Current Meds 1. Acetasol HC 2-1 % Otic Solution; INSTILL 3 DROPS 4 TIMES DAILY 2. Calcium 500+D 500-200 MG-UNIT Oral Tablet; Take 1 tablet twice daily 3. HydroCHLOROthiazide 25 MG Oral Tablet; TAKE 1 TABLET DAILY 4. Multiple Vitamin TABS; TAKE 1 TABLET DAILY 5. Vitamin D 2000 UNIT Oral Tablet Allergies 1. Avelox TABS 2. Biaxin TABS 3. Penicillins 4. Sulfa Drugs 5. Codeine Derivatives 6. Clarithromycin TABS Hives 7. Morphine Derivatives Nausea/Vomiting Vital Signs Height: 5 ft 1 in Weight: 152 lb 7 oz BMI Calculated: 28.8 BSA Calculated: 1.68 Systolic: 132 Diastolic: 80 Temperature: 98.7 F Heart Rate: 87 O2 Saturation: 99 Physical Exam Constitutional General appearance: No acute distress, well appearing and well nourished. Eyes Conjunctiva and lids: No swelling, erythema or discharge. Pupils and irises: Equal, round, reactive to light. Ophthalmoscopic examination: Normal fundi and optic discs. Ears, Nose, Mouth, and Throat External inspection of ears and nose: Normal. Otoscopic examination: Tympanic membranes translucent with normal light reflex. Canals patent without erythema. Hearing: Normal. Nasal mucosa, septum, and turbinates: Normal without edema or erythema. Lips, teeth, and gums: Normal, good dentition. Oropharynx: Normal with no erythema, edema, exudate or lesions. Neck Neck: Supple, symmetric, trachea midline, no masses. Thyroid: Normal, no thyromegaly. Pulmonary Respiratory effort: No increased work of breathing or signs of respiratory distress. Percussion of chest: Normal. Palpation of chest: Normal. Auscultation of lungs: Clear to auscultation. Cardiovascular Palpation of heart: Normal PMI, no thrills. Auscultation of heart: Normal rate and rhythm, normal S1 and S2, no murmurs. Carotid pulses: 2+ bilaterally. Abdominal aorta: Normal. Femoral pulses: 2+ bilaterally. Pedal pulses: 2+ bilaterally. Examination of extremities for edema and/or varicosities: Normal. Chest Breasts: Normal, no dimpling or skin changes appreciated. Palpation of breasts and axillae: Normal, no masses palpated. Abdomen Abdomen: Non-tender, no masses. Liver and spleen: No hepatomegaly or splenomegaly. Examination for hernias: No hernia appreciated. Anus, perineum, and rectum: Normal sphincter tone, no masses, no prolapse. Stool sample for occult blood: Negative. Genitourinary External genitalia and vagina: Normal, no lesions appreciated. Urethra: Normal, no discharge. Bladder: Not distended, no tenderness. Cervix: Normal, no lesions. Uterus: Normal size, no tenderness, no masses. Adnexa/Parametria: Normal, no masses or tenderness. Lymphatic Palpation of lymph nodes in neck: No lymphadenopathy. Palpation of lymph nodes in axillae: No lymphadenopathy. Palpation of lymph nodes in groin: No lymphadenopathy. Palpation of lymph nodes in other areas: No lymphadenopathy. Musculoskeletal Gait and station: Normal. Digits and nails: Normal without clubbing or cyanosis. Joints, bones, and muscles: Normal. Range of motion: Normal. Stability: Normal. Muscle strength/tone: Normal. Skin Skin and subcutaneous tissue: Normal without rashes or lesions. Palpation of skin and subcutaneous tissue: Normal turgor. Neurologic Cranial nerves: Cranial nerves II-XII intact. Reflexes: 2+ and symmetric. Sensation: No sensory loss. Psychiatric Judgment and insight: Normal. Orientation to person, place, and time: Normal. Recent and remote memory: Intact. Mood and affect: Normal.
--- NOTE | 2017-05-30 06:52 | History & Physical Bridge Note ---
H&P Re-Evaluation Bridge Note: I have examined the patient, reviewed the History & Physical and in the interval since the performance of the History & Physical I have noted the following changes of clinical significance: No changes noted
[2017-05-30] MEDS ORDERED: FENTANYL CITRATE INJ 50 MCG/1 ML 2 ML VIAL ONE (07:02)
[2017-05-30] MEDS ORDERED: MIDAZOLAM HCL 1 MG/ML 2ML VIAL ONE (07:02)
[2017-05-30] MEDS ORDERED: SCOPOLAMINE 1.5 MG TDSY TD ONE (07:10)
[2017-05-30] MEDS ORDERED: ONDANSETRON INJ 2 MG/ML 2 ML VIAL ONE (07:35)
[2017-05-30] MEDS ORDERED: LIDOCAINE HCL 2% 2 ML VIAL (20MG/ML) ONE (07:35)
[2017-05-30] MEDS ORDERED: PROPOFOL IV EMULSION 10 MG/ML 20 ML VIAL IV ONE (07:35)
[2017-05-30] MEDS ORDERED: DEXAMETHASONE SOD INJ 4 MG/ML VIAL ONE (07:35)
[2017-05-30] MEDS ORDERED: FENTANYL CITRATE INJ 50 MCG/1 ML 2 ML VIAL IV PRN (07:45)
[2017-05-30] MEDS ORDERED: ATROPINE SULFATE 0.1 MG/ML 5ML SYR IV PRN (07:45)
[2017-05-30] MEDS ORDERED: ONDANSETRON INJ 2 MG/ML 2 ML VIAL IV PRN (07:45)
[2017-05-30] MEDS ORDERED: EpHEDrine SULFATE INJ 50 MG/ML AMP IV PRN (07:45)
[2017-05-30] MEDS ORDERED: EpHEDrine SULFATE 50MG/5ML SYR ONE (07:55)
--- NOTE | 2017-05-30 08:19 | Bronchoscopy Procedure Note ---
Bronchoscopy Procedure Note Procedure: Flexible-Bronchoscopy, EBUS, FNA, BAL Consent: Obtained through the patient placed into the chart Pre-Procedural Dx: Mediastinal adenopathy Post-Procedural Dx: Mediastinal adenopathy/sarcoid Analgesia: GETA Sedation: GETA Procedure: The Olympus video bronchoscope and EBUS scope were used for this procedure Initially the flexible bronchoscope was used for evaluation of the airways. An LMA Size 4 was used for this procedure and properly positioned Vocal Cords: Anatomically WNL Sub-Glottis & Trachea: Anatomically WNL Rhonda: Anatomically within normal limits Right bronchial tree: Right mainstem bronchus: Anatomically within normal limits Right upper lobe: Anatomically within normal limits Bronchus intermedius: Anatomically within normal limits Right middle lobe: Anatomically within normal limits Right lower lobe: Anatomically within normal limits Findings: No significant findings noted Left bronchial tree: Left mainstem bronchus: Anatomically within normal limits Left upper lobe: Anatomically within normal limits Lingula: Anatomically within normal limits Left lower lobe: Anatomically within normal limits Findings: No significant findings noted EBUS/GRANT: FNA Vaibhav Stations: 7: # of passes 3 4R: # of passes 3 4L: # of passes 1 11R: # of passes 3 BAL: RML EBL: 3cc Complications: None Follow-up: PACU
--- NOTE | 2017-05-30 08:23 | Discharge Instructions ---
Discharge Instructions Date of Service May 30, 2017. Admission Reason for Admission: Elevated Transaminase Level, Pulmonary Sarcoidosis Discharge Discharge Diagnosis / Problem: mediastinal adenopathy Discharge Goals Goal(s): Diagnostic testing Activity Recommendations Activity Limitations: resume your previous activity . Instructions / Follow-Up Instructions / Follow-Up Follow-up with Dr. Jerrell Encinas to [facility] pulmonary clinic Current Hospital Diet Patient's current hospital diet: Discharge Diet Recommended Diet: Regular Diet Procedures Procedures Performed: Endobronchial Ultrasound, Flexible Bronchoscopy, Trans-Tracheal/Bronchial Needle Aspiration, Bronchial Lavage Pending Studies Studies pending at discharge: no Medical Emergencies . Who to Call and When: Medical Emergencies: If at any time you feel your situation is an emergency, please call 911 immediately. . Non-Emergent Contact Non-Emergency issues call your: Metal Fabricating Inspector . . "Provider Documentation" section prepared by Haile Stiles. . VTE Core Measure Inpt VTE Proph given/why not?: Treatment not indicated
--- NOTE | 2017-05-30 08:52 | Anesthesiology Progress Note ---
Anesthesia Post Op Note Date & Time May 30, 2017 at 08:52 Vital Signs Pain Intensity: 0 Vital Signs Past 12 Hours Date Time Temp Pulse Resp B/P (MAP) Pulse Ox O2 Delivery O2 Flow Rate FiO2 05/30/17 08:20 36.7 110 16 134/87 98 Oxymask 7 05/30/17 06:00 37.1 89 20 143/94 (110) 97 Room Air Notes Mental Status: alert / awake / arousable, participated in evaluation Pt Amnestic to Procedure: Yes Nausea / Vomiting: adequately controlled Pain: adequately controlled Airway Patency, RR, SpO2: stable & adequate BP & HR: stable & adequate Hydration State: stable & adequate Anesthetic Complications: no major complications apparent
[2017-05-30 09:05] VITALS: BP 140/78; PULSE 102; TEMP 37; O2SAT 92
[2017-05-30 09:35] VITALS: BP 138/74; PULSE 101; O2SAT 93
[2017-05-30 09:50] VITALS: BP 140/81; PULSE 98; TEMP 36.9; O2SAT 94
== END 2017-05-30 09:50 | disposition home or self-care (01) ==
LOC: C.ACU 05:38
PROVIDERS: ATTEND Internal Medicine Critical Care Medicine
DX: R59.9 Enlarged lymph nodes, unspecified (principal); I10 Essential (primary) hypertension; Z88.0 Allergy status to penicillin; I73.00 Raynaud's syndrome without gangrene; Z90.89 Acquired absence of other organs; Z90.711 Acquired absence of uterus with remaining cervical stump; Z98.51 Tubal ligation status; Z80.1 Family history of malignant neoplasm of trachea, bronchus and lung; Z82.49 Family history of ischemic heart disease and other diseases of the circulatory system; Z82.3 Family history of stroke; Z83.3 Family history of diabetes mellitus; Z88.2 Allergy status to sulfonamides; K21.9 Gastro-esophageal reflux disease without esophagitis

== ENCOUNTER → 2017-06-23 | Outpatient (CLI) | payer OTHER ==
--- NOTE | 2017-06-23 13:25 | MAMMOGRAPHY REPORT ---
BILATERAL DIGITAL SCREENING MAMMOGRAM TOMOSYNTHESIS WITH CAD: 06/23/2017 TECHNIQUE: Breast tomosynthesis in addition to standard 2D mammography was performed. Current study was also evaluated with a Computer Aided Detection (CAD) system. COMPARISON: Comparison is made to exams dated: 06/20/2016 mammogram, 06/19/2015 mammogram, 06/16/2014 m ammogram, 06/14/2013 mammogram, 06/07/2012 mammogram, and 06/06/2011 mammogram - [facility] nter. BREAST COMPOSITION: There are scattered areas of fibroglandular density in both breasts. FINDINGS: No suspicious masses, calcifications, or areas of architectural distortion are noted in ei ther breast. There has been no significant interval change compared to prior exams. IMPRESSION: ACR BI-RADS CATEGORY 1: NEGATIVE There is no mammographic evidence of malignancy. A 1 year screening mammogram is recommended. The pa tient will receive written notification of the results. Approximately 10% of breast cancers are not detected with mammography. A negative mammographic report should not delay biopsy if a clinically suggestive mass is present. Miranda Licona M.D. /:06/23/2017 12:07:57 Pizza Baker: Mary WHITAKER(Xu)(M), [facility] letter sent: Normal 1/2 BI-RADS Code: ACR BI-RADS Category 1: Negative
== END | disposition home or self-care (01) ==
LOC: C.MAMM 10:37
PROVIDERS: ATTEND Obstetrics & Gynecology
DX: Z12.31 Encounter for screening mammogram for malignant neoplasm of breast (principal)